=== PATIENT | male | born 1930 | race Hispanic/Latino ===

== ENCOUNTER 2017-12-11 15:08 | Inpatient (IN) | payer MEDICARE, OTHER ==
[2017-12-11] MEDS ORDERED: NACL 0.9% 500 ML 500 ML IV ONE (16:00)
--- NOTE | 2017-12-11 16:29 | Emergency Department Report ---
ED Shortness of Breath HPI - General Chief Complaint: Dyspnea/Respdistress Stated Complaint: POSS. PNEUMONIA Time Seen by Provider: 12/11/17 16:09 Source: patient, family, EMS Mode of arrival: Stretcher Limitations: Physical Limitation - History of Present Illness MD Complaint: shortness of breath -: Gradual, days(s) (5 days) Associated Symptoms: other (intermittent right side chest pain, low energy, loss of appetite, and mild cough. He was recently here as inpatient for pneumonia and discharged November 27 to a Rehab/ NH. He usually lives at home with his and in good health but a few months ago was diagnosed with MM and in September he fractured his arm for the second time.) Treatments Prior to Arrival: none - Related Data Allergies Allergy/AdvReac Type Severity Reaction Status Date / Time No Known Allergies Allergy Unverified 12/11/17 16:00 ED Review of Systems ROS: Stated complaint: POSS. PNEUMONIA Other details as noted in HPI Constitutional: denies: chills, fever Eyes: denies: eye pain, eye discharge, vision change ENT: denies: ear pain, throat pain Respiratory: see HPI, cough, shortness of breath. denies: wheezing Cardiovascular: as per HPI, chest pain. denies: palpitations Endocrine: no symptoms reported Gastrointestinal: denies: abdominal pain, nausea, diarrhea Genitourinary: denies: urgency, dysuria Musculoskeletal: denies: back pain, joint swelling, arthralgia Skin: denies: rash, lesions Neurological: denies: headache, weakness, paresthesias Psychiatric: denies: anxiety, depression Hematological/Lymphatic: easy bruising. denies: easy bleeding ED Past Medical Hx - Past Medical History Previous Medical History?: Yes Hx Hypertension: Yes Hx CVA: Yes Hx Renal Disease: Yes Additional medical history: multiple myeloma - Surgical History Additional Surgical History: Pacemaker - Social History Smoking Status: Former Smoker Substance Use Type: None ED Physical Exam - General Limitations: Physical Limitation General appearance: in no apparent distress, lethargic - Head Head exam: Present: atraumatic, normocephalic - Eye Eye exam: Present: normal appearance - ENT ENT exam: Present: mucous membranes moist - Neck Neck exam: Present: normal inspection - Respiratory Respiratory exam: Present: rales (right side), decreased breath sounds. Absent : respiratory distress, chest wall tenderness, accessory muscle use - Cardiovascular Cardiovascular Exam: Present: normal rhythm, tachycardia. Absent: systolic murmur, diastolic murmur, rubs, gallop - GI/Abdominal GI/Abdominal exam: Present: soft, normal bowel sounds - Rectal Rectal exam: Present: deferred - Extremities Exam Extremities exam: Present: pedal edema (2+ edema) - Back Exam Back exam: Present: normal inspection - Neurological Exam Neurological exam: Present: alert, oriented X3 - Psychiatric Psychiatric exam: Present: normal affect, normal mood - Skin Skin exam: Present: warm, dry, normal color, ecchymosis. Absent: rash ED Course Vital Signs 12/11/17 12/11/17 15:56 16:29 Temperature 100.0 F H Pulse Rate 104 H Respiratory 22 Rate Blood Pressure 119/80 O2 Sat by Pulse 98 98 Oximetry ED Medical Decision Making - Lab Data Result diagrams: 12/11/17 16:30 12/11/17 16:30 Critical care attestation.: If time is entered above; I have spent that time in minutes in the direct care of this critically ill patient, excluding procedure time. ED Disposition Clinical Impression: CHF exacerbation Qualifiers: Congestive heart failure type: unspecified Qualified Code(s): I50.9 - Heart failure, unspecified Disposition: DC-09 OP ADMIT IP TO THIS HOSP Is pt being admited?: Yes Does the pt Need Aspirin: No Condition: Stable
[2017-12-11 16:35] LABS: Bacteria,Urine 1+ /HPF (Negative); Bilirubin,Urine NEG (Negative); Blood,Urine MOD (Negative); Color,Urine Yellow (Yellow); Nitrite,Urine NEG (Negative); Protein,Urine <15 mg/dL mg/dL (Negative); Urobilinogen,Urine < 2.0 mg/dL (<2.0)
[2017-12-11 16:52] LABS: Hemoglobin 9.8 gm/dl (11.8-15.2); Mean Corpuscular HGB Conc 33 % (32-34); Mean Corpuscular Hemoglobin 32 pg (28-32); Mean Corpuscular Volume 99 fl (84-94); Red Blood Count 3.02 M/mm3 (3.65-5.03); Red Cell Distribution Width 13.6 % (13.2-15.2)
[2017-12-11 17:15] LABS: Albumin 3.2 g/dL (3.9-5); Calcium 8.5 mg/dL (8.4-10.2)
[2017-12-11 17:25] LABS: Basophils % (Manual) 0 % (0.0-1.8); Eosinophils % (Manual) 0 % (0.0-4.3); Total Cells Counted 100
[2017-12-11 17:27] LABS: Platelet Estimate Appears Decreased
[2017-12-11 17:28] LABS: Anisocytosis 1+; Ovalocytes Few; Poikilocytosis Few; Tear Drop Cells Few
[2017-12-11 17:29] LABS: Platelet Count 91 K/mm3 (140-440)
--- NOTE | 2017-12-11 17:35 | XRay Report ---
FINAL REPORT PROCEDURE: XR CHEST 1V AP TECHNIQUE: Chest radiograph anteroposterior view. CPT 43074 HISTORY: possible Sepsis COMPARISON: No prior studies are available for comparison. FINDINGS: Heart: Prominent cardiac silhouette Mediastinum/Vessels: Prominent central vessels. Lungs/Pleural space: There are bilateral pulmonary opacities and pleural effusions. No pneumothorax. Bony thorax: No acute osseous abnormality. Life support devices: Dual lead left-sided pacemaker. IMPRESSION: Findings may be related to congestive heart failure with pulmonary edema. Correlate for possible infectious infiltrates..
[2017-12-11 17:59] LABS: INR 1.15 (0.87-1.13)
[2017-12-11] MEDS ORDERED: LASIX IV ONE (18:20)
--- NOTE | 2017-12-11 21:03 | History and Physical Report ---
History of Present Illness Date of examination: 12/11/17 Date of admission: 12/11/17 19:45 Chief complaint: CC Increasing SOB for 1 week History of present illness: History of Present Illness: 87 y/o male with pmh of HTN recent admission for pnemonia, CKD ,CVA and Multiple myeloma -resident of [facility] for rehab comes in for prgressive increase in his SOB.Sob on minimal exertion and lying flat.Class IV NYHA symptoms.Also swelling of legs for 2 weeks.No recent travel. No fever or chills.No dysuria.Also rt side intermittent chest pain loss of appetite and mild cough.He was recently treae fo rpneumonia in Oct and discharged on 11/27.hose records are not available on [facility] for some reason. Past Medical History Previous Medical History?: Yes Hx Hypertension: Yes Hx CVA: Yes Hx Renal Disease: Yes Additional medical history: multiple myeloma Surgical History Additional Surgical History: Pacemaker Social History Smoking Status: Former Smoker Substance Use Type: None Lives at [facility] Fam Hx Htn Review of Systems Stated complaint: POSS. PNEUMONIA Other details as noted in HPI Constitutional: denies: chills, fever Eyes: denies: eye pain, eye discharge, vision change ENT: denies: ear pain, throat pain Respiratory: see HPI, cough, shortness of breath. denies: wheezing Cardiovascular: as per HPI, chest pain. denies: palpitations Endocrine: no symptoms reported Gastrointestinal: denies: abdominal pain, nausea, diarrhea Genitourinary: denies: urgency, dysuria Musculoskeletal: denies: back pain, joint swelling, arthralgia Skin: denies: rash, lesions Neurological: denies: headache, weakness, paresthesias Psychiatric: denies: anxiety, depression Hematological/Lymphatic: easy bruising. denies: easy bleeding Medications and Allergies Allergies Allergy/AdvReac Type Severity Reaction Status Date / Time No Known Allergies Allergy Unverified 12/11/17 16:00 Home Medications Medication Instructions Recorded Confirmed Last Taken Type Aspirin EC [Aspirin Enteric Coated 81 mg PO QDAY 12/11/17 12/11/17 Unknown History TAB] Bisacodyl 10 mg RC QDAY PRN 12/11/17 12/11/17 Unknown History Ti/D3/Mag11/Zinc/Shingle Packer/Venu/Bor 1 tab PO QDAY 12/11/17 12/11/17 Unknown History [Caltrate 600+D Plus Tablet] Cholecalciferol (Vitamin D3) 2,000 unit PO QDAY 12/11/17 12/11/17 Unknown History [Vitamin D3 2,000 unit] Dexamethasone 4 mg PO QWEEK 12/11/17 12/11/17 Unknown History Docusate Sodium [Colace] 100 mg PO BID 12/11/17 12/11/17 Unknown History Enoxaparin [Lovenox] 80 mg SQ QDAY 12/11/17 12/11/17 Unknown History Levofloxacin [Levaquin TAB] 500 mg PO QDAY 12/11/17 12/11/17 Unknown History [place]-3 Fatty Acids/Fish Oil [Fish 1 each PO QDAY 12/11/17 12/11/17 Unknown History Oil] Polyethylene Glycol 3350 [Miralax 17 gm PO QDAY 12/11/17 12/11/17 Unknown History 3350] Sennosides [Senna] 8.6 mg PO QHS 12/11/17 12/11/17 Unknown History carBAMazepine [Carbamazepine] 200 mg PO Q12HR 12/11/17 12/11/17 Unknown History guaiFENesin/DEXTROMETHORPHAN 1 each PO Q12H 12/11/17 12/11/17 Unknown History [Mucinex DM ER 600-30 mg TAB] oxyCODONE /ACETAMINOPHEN [Percocet 1 tab PO Q6HR PRN 12/11/17 12/11/17 Unknown History 5/325] Exam - Constitutional Vitals: Temp Pulse Resp BP Pulse Ox 99 F 104 H 16 119/80 100 12/11/17 19:40 12/11/17 19:40 12/11/17 19:40 12/11/17 19:40 12/11/17 19:40 General appearance: Present: mild distress, well-nourished - EENT Eyes: Present: PERRL ENT: hearing intact, clear oral mucosa - Neck Neck: Present: supple, normal ROM - Respiratory Respiratory effort: normal Respiratory: bilateral: CTA, rales - Cardiovascular Heart rate: 98 Rhythm: regular Heart Sounds: Present: S1 & S2. Absent: rub, click - Extremities Extremities: no ischemia, pulses intact, pulses symmetrical, abnormal (4 plus edema) Extremity abnormal: edema (4 plus) Peripheral Pulses: within normal limits - Abdominal General gastrointestinal: Present: soft, non-tender, non-distended, normal bowel sounds Male genitourinary: Present: normal - Rectal Rectal Exam: deferred - Integumentary Integumentary: Present: clear, warm, dry, decreased turgor - Musculoskeletal Musculoskeletal: gait normal, strength equal bilaterally - Psychiatric Psychiatric: appropriate mood/affect, intact judgment & insight - Neurologic Neurologic: CNII-XII intact, moves all extremities - Allied Health Allied health notes reviewed: nursing, case management Results - Labs CBC & Chem 7: 12/11/17 16:30 12/11/17 16:30 Labs: Laboratory Last Values WBC 8.2 K/mm3 (4.5-11.0) 12/11/17 16:30 RBC 3.02 M/mm3 (3.65-5.03) L 12/11/17 16:30 Hgb 9.8 gm/dl (11.8-15.2) L 12/11/17 16:30 Hct 30.0 % (35.5-45.6) L 12/11/17 16:30 MCV 99 fl (84-94) H 12/11/17 16:30 MCH 32 pg (28-32) 12/11/17 16:30 MCHC 33 % (32-34) 12/11/17 16:30 RDW 13.6 % (13.2-15.2) 12/11/17 16:30 Plt Count 91 K/mm3 (140-440) L 12/11/17 16:30 Add Manual Diff Complete 12/11/17 16:30 Total Counted 100 12/11/17 16:30 Seg Neutrophils % Hop Grower 12/11/17 16:30 Seg Neuts % (Manual) 96.0 % (40.0-70.0) H 12/11/17 16:30 Band Neutrophils % 0 % 12/11/17 16:30 Lymphocytes % (Manual) 3.0 % (13.4-35.0) L 12/11/17 16:30 Reactive Lymphs % (Man) 0 % 12/11/17 16:30 Monocytes % (Manual) 1.0 % (0.0-7.3) 12/11/17 16:30 Eosinophils % (Manual) 0 % (0.0-4.3) 12/11/17 16:30 Basophils % (Manual) 0 % (0.0-1.8) 12/11/17 16:30 Metamyelocytes % 0 % 12/11/17 16:30 Myelocytes % 0 % 12/11/17 16:30 Promyelocytes % 0 % 12/11/17 16:30 Blast Cells % 0 % 12/11/17 16:30 Nucleated RBC % Not Reportable 12/11/17 16:30 Seg Neutrophils # Man 7.9 K/mm3 (1.8-7.7) H 12/11/17 16:30 Band Neutrophils # 0.0 K/mm3 12/11/17 16:30 Lymphocytes # (Manual) 0.2 K/mm3 (1.2-5.4) L 12/11/17 16:30 Abs React Lymphs (Man) 0.0 K/mm3 12/11/17 16:30 Monocytes # (Manual) 0.1 K/mm3 (0.0-0.8) 12/11/17 16:30 Eosinophils # (Manual) 0.0 K/mm3 (0.0-0.4) 12/11/17 16:30 Basophils # (Manual) 0.0 K/mm3 (0.0-0.1) 12/11/17 16:30 Metamyelocytes # 0.0 K/mm3 12/11/17 16:30 Myelocytes # 0.0 K/mm3 12/11/17 16:30 Promyelocytes # 0.0 K/mm3 12/11/17 16:30 Blast Cells # 0.0 K/mm3 12/11/17 16:30 WBC Morphology Not Reportable 12/11/17 16:30 Hypersegmented Neuts Not Reportable 12/11/17 16:30 Hyposegmented Neuts Not Reportable 12/11/17 16:30 Hypogranular Neuts Not Reportable 12/11/17 16:30 Smudge Cells Not Reportable 12/11/17 16:30 Toxic Granulation Not Reportable 12/11/17 16:30 Toxic Vacuolation Not Reportable 12/11/17 16:30 Dohle Bodies Not Reportable 12/11/17 16:30 Pelger-Huet Anomaly Not Reportable 12/11/17 16:30 Herve Rods Not Reportable 12/11/17 16:30 Platelet Estimate Appears decreased 12/11/17 16:30 Clumped Platelets Not Reportable 12/11/17 16:30 Plt Clumps, EDTA Not Reportable 12/11/17 16:30 Large Platelets Not Reportable 12/11/17 16:30 Giant Platelets Not Reportable 12/11/17 16:30 Platelet Satelliting Not Reportable 12/11/17 16:30 Plt Morphology Comment Not Reportable 12/11/17 16:30 RBC Morphology Not Reportable 12/11/17 16:30 Dimorphic RBCs Not Reportable 12/11/17 16:30 Polychromasia Not Reportable 12/11/17 16:30 Hypochromasia Not Reportable 12/11/17 16:30 Poikilocytosis Few 12/11/17 16:30 Anisocytosis 1+ 12/11/17 16:30 Microcytosis Not Reportable 12/11/17 16:30 Macrocytosis Not Reportable 12/11/17 16:30 Spherocytes Not Reportable 12/11/17 16:30 Pappenheimer Bodies Not Reportable 12/11/17 16:30 Sickle Cells Not Reportable 12/11/17 16:30 Target Cells Not Reportable 12/11/17 16:30 Tear Drop Cells Few 12/11/17 16:30 Ovalocytes Few 12/11/17 16:30 Helmet Cells Not Reportable 12/11/17 16:30 [place] Bodies Not Reportable 12/11/17 16:30 [place] Rings Not Reportable 12/11/17 16:30 Rudi Cells Not Reportable 12/11/17 16:30 Bite Cells Not Reportable 12/11/17 16:30 Crenated Cell Not Reportable 12/11/17 16:30 Elliptocytes Not Reportable 12/11/17 16:30 Acanthocytes (Spur) Not Reportable 12/11/17 16:30 Rouleaux Not Reportable 12/11/17 16:30 Hemoglobin C Crystals Not Reportable 12/11/17 16:30 Schistocytes Not Reportable 12/11/17 16:30 Malaria parasites Not Reportable 12/11/17 16:30 Yuval Bodies Not Reportable 12/11/17 16:30 Hem Pathologist Commnt No 12/11/17 16:30 PT 15.3 Sec. (12.2-14.9) H 12/11/17 17:40 INR 1.15 (0.87-1.13) H 12/11/17 17:40 Sodium 138 mmol/L (137-145) 12/11/17 16:30 Potassium 4.3 mmol/L (3.6-5.0) 12/11/17 16:30 Chloride 97.7 mmol/L (98-107) L 12/11/17 16:30 Carbon Dioxide 23 mmol/L (22-30) 12/11/17 16:30 Anion Gap 22 mmol/L 12/11/17 16:30 BUN 35 mg/dL (9-20) H 12/11/17 16:30 Creatinine 3.4 mg/dL (0.8-1.5) H 12/11/17 16:30 Estimated GFR 17 ml/min 12/11/17 16:30 BUN/Creatinine Ratio 10 % 12/11/17 16:30 Glucose 101 mg/dL (75-100) H 12/11/17 16:30 Lactic Acid 1.50 mmol/L (0.7-2.0) 12/11/17 18:00 Calcium 8.5 mg/dL (8.4-10.2) 12/11/17 16:30 Total Bilirubin 0.20 mg/dL (0.1-1.2) 12/11/17 16:30 AST 19 units/L (5-40) 12/11/17 16:30 ALT 7 units/L (7-56) 12/11/17 16:30 Alkaline Phosphatase 80 units/L (35-129) 12/11/17 16:30 NT-Pro-B Natriuret Pep > 56553 pg/mL (0-900) H 12/11/17 16:30 Total Protein 5.8 g/dL (6.3-8.2) L 12/11/17 16:30 Albumin 3.2 g/dL (3.9-5) L 12/11/17 16:30 Albumin/Globulin Ratio 1.2 % 12/11/17 16:30 Urine Color Yellow (Yellow) 12/11/17 16:00 Urine Turbidity Clear (Clear) 12/11/17 16:00 Urine pH 5.0 (5.0-7.0) 12/11/17 16:00 Ur Specific Century 1.010 (1.003-1.030) 12/11/17 16:00 Urine Protein <15 mg/dl mg/dL (Negative) 12/11/17 16:00 Urine Glucose (UA) Neg mg/dL (Negative) 12/11/17 16:00 Urine Ketones Neg mg/dL (Negative) 12/11/17 16:00 Urine Blood Mod (Negative) 12/11/17 16:00 Urine Nitrite Neg (Negative) 12/11/17 16:00 Urine Bilirubin Neg (Negative) 12/11/17 16:00 Urine Urobilinogen < 2.0 mg/dL (<2.0) 12/11/17 16:00 Ur Leukocyte Esterase Neg (Negative) 12/11/17 16:00 Urine WBC (Auto) 2.0 /HPF (0.0-6.0) 12/11/17 16:00 Urine RBC (Auto) 2.0 /HPF (0.0-6.0) 12/11/17 16:00 U Epithel Cells (Auto) < 1.0 /HPF (0-13.0) 12/11/17 16:00 Urine Bacteria (Auto) 1+ /HPF (Negative) 12/11/17 16:00 Short CBC 12/11/17 Range/Units 16:30 WBC 8.2 (4.5-11.0) K/mm3 Hgb 9.8 L (11.8-15.2) gm/dl Hct 30.0 L (35.5-45.6) % Plt Count 91 L (140-440) K/mm3 BMP 12/11/17 16:30 Sodium 138 Potassium 4.3 Chloride 97.7 L Carbon Dioxide 23 BUN 35 H Creatinine 3.4 H Glucose 101 H Calcium 8.5 Liver Function 12/11/17 Range/Units 16:30 Total Bilirubin 0.20 (0.1-1.2) mg/dL AST 19 (5-40) units/L ALT 7 (7-56) units/L Alkaline Phosphatase 80 (35-129) units/L Albumin 3.2 L (3.9-5) g/dL Urine 12/11/17 Range/Units 16:00 Urine Color Yellow (Yellow) Urine pH 5.0 (5.0-7.0) Ur Specific Century 1.010 (1.003-1.030) Urine Protein <15 mg/dl (Negative) mg/dL Urine Glucose (UA) Neg (Negative) mg/dL - Imaging and Cardiology EKG: report reviewed (Sinus tach 99/min VPC's present) Chest x-ray: report reviewed (CHF with pulmonary edema) Assessment and Plan Advance Directives: Yes (Full code) VTE prophylaxis?: Chemical Plan of care discussed with patient/family: Yes - Patient Problems (1) Acute exacerbation of congestive heart failure Current Visit: Yes Status: Acute Qualifiers: Congestive heart failure type: diastolic Qualified Code(s): I50.33 - Acute on chronic diastolic (congestive) heart failure Plan to address problem: Clinical picture in favor of CHF. Pneumonia unlikely. BNP more than 14321 IV Lasix q12 and Kcl q12 CHeck ECHO Cardiology consult requested (2) CKD (chronic kidney disease) Current Visit: Yes Status: Acute Qualifiers: Chronic kidney disease stage: stage 4 (severe) Qualified Code(s): N18.4 - Chronic kidney disease, stage 4 (severe) Plan to address problem: Previous labs from Oct 2017 not availabe. Renal consult requested (3) Multiple myeloma in remission Current Visit: Yes Status: Chronic Plan to address problem: On Decadron 4 mg q weekly (4) HTN (hypertension) Current Visit: Yes Status: Chronic Qualifiers: Hypertension type: essential hypertension Qualified Code(s): I10 - Essential (primary) hypertension Plan to address problem: Coreg and Losartan added (5) Vitamin D deficiency Current Visit: Yes Status: Chronic Plan to address problem: On Vit d supplement (6) Anemia Current Visit: Yes Status: Chronic Qualifiers: Anemia type: unspecified type Qualified Code(s): D64.9 - Anemia, unspecified Plan to address problem: Sec to Multiple Myeloma and nutritional Check Iron level and B12 levels (7) Thrombocytopenia Current Visit: Yes Status: Acute Plan to address problem: Possibly sec to Multiple Myeloma Hem onc consulted (8) Malnutrition Current Visit: Yes Status: Chronic Qualifiers: Protein-calorie malnutrition severity: moderate Plan to address problem: Dietary consult reequested (9) DVT prophylaxis Current Visit: Yes Status: Acute Plan to address problem: On Lovenox
[2017-12-11] MEDS ORDERED: MILK OF MAGNESIA PO PRN (21:10)
[2017-12-11] MEDS ORDERED: DULCOLAX PR PRN (21:10)
[2017-12-11] MEDS ORDERED: TYLENOL PO PRN (21:10)
[2017-12-11] MEDS ORDERED: ZOFRAN IV PRN (21:10)
[2017-12-11] MEDS ORDERED: BABY ASPIRIN ONE (21:41)
[2017-12-11] MEDS: COLACE PO SCH (21:46)
[2017-12-11] MEDS: K-DUR PO SCH (21:46)
[2017-12-11] MEDS: HALFPRIN EC PO SCH (21:46)
[2017-12-11] MEDS: AMBIEN PO PRN (21:47)
[2017-12-11] MEDS: LOVENOX SUB-Q SCH (22:50)
[2017-12-12] MEDS: LASIX IV SCH ×2 (06:19→17:41)
[2017-12-12] MEDS: COREG PO SCH ×3 (06:20→22:02)
[2017-12-12 08:02] LABS: % Iron Saturation 13.66 %
--- NOTE | 2017-12-12 09:13 | Progress Note ---
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 avoid nephrotoxins, culture manager consulted on lasix, dc HUAN for now (creat now 3.5, was 2.3 on previous admission) MM outpatient fup with his oncologist anemia and thrombocytopenia are mild and stable Sp PM HR stable HTN BP meds, propranolol and doxazosin were dc during last admission due to hypotension Complete immobility due to frailty PT, home with services vs SNF, fup PT assessment moderate malnutrition continue diet, accounts collector consult hx of CVA stable History Interval history: Review of systems Constitutional: No fevers, no malaise, no joint pains CVS: No chest pain, complaining of orthopnea and pedal edema GI: No abdominal pain, no diarrhea, no vomiting, no constipation Respiratory: no wheezing, admits to dry cough Hospitalist Physical - Physical exam Narrative exam: General.: Appears well, no distress, nontoxic HEENT: Moist mucous membranes, extraocular muscles intact, no lymphadenopathy Right cirrhosis, which is chronic Neck: supple Cardiac: S1-S2 heard Lungs: Bibasilar crackles Abdomen: soft , nontender, nondistended, bowel sounds positive Extremities: 2+ bipedal edema Skin: no rash or lesions Neurologic: no gross focal deficits, generalized weakness Psych: appropriate behavior, appropriate mood, corporative, judgment intact - Constitutional Vitals: Temp Pulse Resp BP Pulse Ox 98.8 F 95 H 17 107/67 97 12/12/17 06:05 12/12/17 08:17 12/12/17 06:05 12/12/17 06:20 12/12/17 08:17 General appearance: Present: mild distress, well-nourished Results - Labs CBC & Chem 7: 12/11/17 16:30 12/12/17 09:20 Labs: Laboratory Last Values WBC 8.2 K/mm3 (4.5-11.0) 12/11/17 16:30 RBC 3.02 M/mm3 (3.65-5.03) L 12/11/17 16:30 Hgb 9.8 gm/dl (11.8-15.2) L 12/11/17 16:30 Hct 30.0 % (35.5-45.6) L 12/11/17 16:30 MCV 99 fl (84-94) H 12/11/17 16:30 MCH 32 pg (28-32) 12/11/17 16:30 MCHC 33 % (32-34) 12/11/17 16:30 RDW 13.6 % (13.2-15.2) 12/11/17 16:30 Plt Count 91 K/mm3 (140-440) L 12/11/17 16:30 Add Manual Diff Complete 12/11/17 16:30 Total Counted 100 12/11/17 16:30 Seg Neutrophils % [employer] Supply [employer] Vice President 12/11/17 16:30 Seg Neuts % (Manual) 96.0 % (40.0-70.0) H 12/11/17 16:30 Band Neutrophils % 0 % 12/11/17 16:30 Lymphocytes % (Manual) 3.0 % (13.4-35.0) L 12/11/17 16:30 Reactive Lymphs % (Man) 0 % 12/11/17 16:30 Monocytes % (Manual) 1.0 % (0.0-7.3) 12/11/17 16:30 Eosinophils % (Manual) 0 % (0.0-4.3) 12/11/17 16:30 Basophils % (Manual) 0 % (0.0-1.8) 12/11/17 16:30 Metamyelocytes % 0 % 12/11/17 16:30 Myelocytes % 0 % 12/11/17 16:30 Promyelocytes % 0 % 12/11/17 16:30 Blast Cells % 0 % 12/11/17 16:30 Nucleated RBC % Not Reportable 12/11/17 16:30 Seg Neutrophils # Man 7.9 K/mm3 (1.8-7.7) H 12/11/17 16:30 Band Neutrophils # 0.0 K/mm3 12/11/17 16:30 Lymphocytes # (Manual) 0.2 K/mm3 (1.2-5.4) L 12/11/17 16:30 Abs React Lymphs (Man) 0.0 K/mm3 12/11/17 16:30 Monocytes # (Manual) 0.1 K/mm3 (0.0-0.8) 12/11/17 16:30 Eosinophils # (Manual) 0.0 K/mm3 (0.0-0.4) 12/11/17 16:30 Basophils # (Manual) 0.0 K/mm3 (0.0-0.1) 12/11/17 16:30 Metamyelocytes # 0.0 K/mm3 12/11/17 16:30 Myelocytes # 0.0 K/mm3 12/11/17 16:30 Promyelocytes # 0.0 K/mm3 12/11/17 16:30 Blast Cells # 0.0 K/mm3 12/11/17 16:30 WBC Morphology Not Reportable 12/11/17 16:30 Hypersegmented Neuts Not Reportable 12/11/17 16:30 Hyposegmented Neuts Not Reportable 12/11/17 16:30 Hypogranular Neuts Not Reportable 12/11/17 16:30 Smudge Cells Not Reportable 12/11/17 16:30 Toxic Granulation Not Reportable 12/11/17 16:30 Toxic Vacuolation Not Reportable 12/11/17 16:30 Dohle Bodies Not Reportable 12/11/17 16:30 Pelger-Huet Anomaly Not Reportable 12/11/17 16:30 Herve Rods Not Reportable 12/11/17 16:30 Platelet Estimate Appears decreased 12/11/17 16:30 Clumped Platelets Not Reportable 12/11/17 16:30 Plt Clumps, EDTA Not Reportable 12/11/17 16:30 Large Platelets Not Reportable 12/11/17 16:30 Giant Platelets Not Reportable 12/11/17 16:30 Platelet Satelliting Not Reportable 12/11/17 16:30 Plt Morphology Comment Not Reportable 12/11/17 16:30 RBC Morphology Not Reportable 12/11/17 16:30 Dimorphic RBCs Not Reportable 12/11/17 16:30 Polychromasia Not Reportable 12/11/17 16:30 Hypochromasia Not Reportable 12/11/17 16:30 Poikilocytosis Few 12/11/17 16:30 Anisocytosis 1+ 12/11/17 16:30 Microcytosis Not Reportable 12/11/17 16:30 Macrocytosis Not Reportable 12/11/17 16:30 Spherocytes Not Reportable 12/11/17 16:30 Pappenheimer Bodies Not Reportable 12/11/17 16:30 Sickle Cells Not Reportable 12/11/17 16:30 Target Cells Not Reportable 12/11/17 16:30 Tear Drop Cells Few 12/11/17 16:30 Ovalocytes Few 12/11/17 16:30 Helmet Cells Not Reportable 12/11/17 16:30 Luciano-Agenda Bodies Not Reportable 12/11/17 16:30 [place] Rings Not Reportable 12/11/17 16:30 Repton Cells Not Reportable 12/11/17 16:30 Bite Cells Not Reportable 12/11/17 16:30 Crenated Cell Not Reportable 12/11/17 16:30 Elliptocytes Not Reportable 12/11/17 16:30 Acanthocytes (Spur) Not Reportable 12/11/17 16:30 Rouleaux Not Reportable 12/11/17 16:30 Hemoglobin C Crystals Not Reportable 12/11/17 16:30 Schistocytes Not Reportable 12/11/17 16:30 Malaria parasites Not Reportable 12/11/17 16:30 Yuval Bodies Not Reportable 12/11/17 16:30 Hem Pathologist Commnt No 12/11/17 16:30 PT 15.3 Sec. (12.2-14.9) H 12/11/17 17:40 INR 1.15 (0.87-1.13) H 12/11/17 17:40 Sodium 138 mmol/L (137-145) 12/11/17 16:30 Potassium 4.3 mmol/L (3.6-5.0) 12/11/17 16:30 Chloride 97.7 mmol/L (98-107) L 12/11/17 16:30 Carbon Dioxide 23 mmol/L (22-30) 12/11/17 16:30 Anion Gap 22 mmol/L 12/11/17 16:30 BUN 35 mg/dL (9-20) H 12/11/17 16:30 Creatinine 3.4 mg/dL (0.8-1.5) H 12/11/17 16:30 Estimated GFR 17 ml/min 12/11/17 16:30 BUN/Creatinine Ratio 10 % 12/11/17 16:30 Glucose 101 mg/dL (75-100) H 12/11/17 16:30 Lactic Acid 1.50 mmol/L (0.7-2.0) 12/11/17 18:00 Calcium 8.5 mg/dL (8.4-10.2) 12/11/17 16:30 Iron 22 ug/dL (49-181) L 12/12/17 06:15 TIBC 161 mcg/dL (250-450) L 12/12/17 06:15 % Saturation 13.66 % 12/12/17 06:15 Transferrin 131 mg/dl (180-329) L 12/12/17 06:15 Total Bilirubin 0.20 mg/dL (0.1-1.2) 12/11/17 16:30 AST 19 units/L (5-40) 12/11/17 16:30 ALT 7 units/L (7-56) 12/11/17 16:30 Alkaline Phosphatase 80 units/L (35-129) 12/11/17 16:30 NT-Pro-B Natriuret Pep > 08914 pg/mL (0-900) H 12/11/17 16:30 Total Protein 5.8 g/dL (6.3-8.2) L 12/11/17 16:30 Albumin 3.2 g/dL (3.9-5) L 12/11/17 16:30 Albumin/Globulin Ratio 1.2 % 12/11/17 16:30 Vitamin B12 1670 pg/mL (211-911) H 12/12/17 06:15 Urine Color Yellow (Yellow) 12/11/17 16:00 Urine Turbidity Clear (Clear) 12/11/17 16:00 Urine pH 5.0 (5.0-7.0) 12/11/17 16:00 Ur Specific [place] 1.010 (1.003-1.030) 12/11/17 16:00 Urine Protein <15 mg/dl mg/dL (Negative) 12/11/17 16:00 Urine Glucose (UA) Neg mg/dL (Negative) 12/11/17 16:00 Urine Ketones Neg mg/dL (Negative) 12/11/17 16:00 Urine Blood Mod (Negative) 12/11/17 16:00 Urine Nitrite Neg (Negative) 12/11/17 16:00 Urine Bilirubin Neg (Negative) 12/11/17 16:00 Urine Urobilinogen < 2.0 mg/dL (<2.0) 12/11/17 16:00 Ur Leukocyte Esterase Neg (Negative) 12/11/17 16:00 Urine WBC (Auto) 2.0 /HPF (0.0-6.0) 12/11/17 16:00 Urine RBC (Auto) 2.0 /HPF (0.0-6.0) 12/11/17 16:00 U Epithel Cells (Auto) < 1.0 /HPF (0-13.0) 12/11/17 16:00 Urine Bacteria (Auto) 1+ /HPF (Negative) 12/11/17 16:00
[2017-12-12] MEDS ORDERED: COZAAR PO SCH (10:00)
[2017-12-12] MEDS ORDERED: NON-FORMULARY (Cholecalciferol (Vitamin D3) [Vitamin D3 2,000 Unit] 2,000 UNIT) PO SCH (10:00)
[2017-12-12 10:02] LABS: Calcium 8.4 mg/dL (8.4-10.2)
--- NOTE | 2017-12-12 10:16 | Consultation ---
History of Present Illness Consult date: 12/12/17 Consult reason: congestive heart failure History of present illness: 87 YO man with h/o sick sinus syndrome s/p PPM, multiple myeloma, chronic systolic heart failure, and CKD who presented to hospital with worsening shortness of breath and orthopnea. His BNP is markedly elevated and chest Xray is suggestive of pulmonary edema. Overall clinical picture is consistent with CHF exacerbation. ECG reveals NSR wtih single PVC, possible prior anterior HI Last echocardiogram 11/02/16 revealed EF of 40-45% Past History Past Medical History: heart failure, hypertension, other (multiple myeloma, sick sinus syndrome) Past Surgical History: Other (PPM implant) Social history: . denies: smoking Medications and Allergies Allergies Allergy/AdvReac Type Severity Reaction Status Date / Time No Known Allergies Allergy Unverified 12/11/17 16:00 Home Medications Medication Instructions Recorded Confirmed Last Taken Type Aspirin EC [Aspirin Enteric Coated 81 mg PO QDAY 12/11/17 12/11/17 Unknown History TAB] Bisacodyl 10 mg RC QDAY PRN 12/11/17 12/11/17 Unknown History Ti/D3/Mag11/Zinc/Shipper/Venu/Bor 1 tab PO QDAY 12/11/17 12/11/17 Unknown History [Caltrate 600+D Plus Tablet] Cholecalciferol (Vitamin D3) 2,000 unit PO QDAY 12/11/17 12/11/17 Unknown History [Vitamin D3 2,000 unit] Dexamethasone 4 mg PO QWEEK 12/11/17 12/11/17 Unknown History Docusate Sodium [Colace] 100 mg PO BID 12/11/17 12/11/17 Unknown History Enoxaparin [Lovenox] 80 mg SQ QDAY 12/11/17 12/11/17 Unknown History Levofloxacin [Levaquin TAB] 500 mg PO QDAY 12/11/17 12/11/17 Unknown History [place]-3 Fatty Acids/Fish Oil [Fish 1 each PO QDAY 12/11/17 12/11/17 Unknown History Oil] Polyethylene Glycol 3350 [Miralax 17 gm PO QDAY 12/11/17 12/11/17 Unknown History 3350] Sennosides [Senna] 8.6 mg PO QHS 12/11/17 12/11/17 Unknown History carBAMazepine [Carbamazepine] 200 mg PO Q12HR 12/11/17 12/11/17 Unknown History guaiFENesin/DEXTROMETHORPHAN 1 each PO Q12H 12/11/17 12/11/17 Unknown History [Mucinex DM ER 600-30 mg TAB] oxyCODONE /ACETAMINOPHEN [Percocet 1 tab PO Q6HR PRN 12/11/17 12/11/17 Unknown History 5/325] Active Meds: Active Medications Acetaminophen (Tylenol) 650 mg PO Q4H PRN PRN Reason: Pain MILD(1-3)/Fever >100.5/OLEA Aspirin (Halfprin Ec) 81 mg PO QDAY [facility] Last Admin: 12/11/17 21:46 Dose: 81 mg Bisacodyl (Dulcolax) 10 mg [place] QDAY PRN PRN Reason: Constipation unrelieved by MOM Carbamazepine (Tegretol) 200 mg PO Q12HR [facility] Last Admin: 12/11/17 21:47 Dose: 200 mg Carvedilol (Coreg) 3.125 mg PO BID [facility] Last Admin: 12/12/17 06:20 Dose: Not Given Cholecalciferol (Vitamin D3) 2,000 unit PO QDAY [facility] Dexamethasone (Decadron) 4 mg PO QWEEK [facility] Docusate Sodium (Colace) 100 mg PO BID [facility] Last Admin: 12/11/17 21:46 Dose: 100 mg Enoxaparin Sodium (Lovenox) 80 mg SUB-Q QDAY [facility] Last Admin: 12/11/17 22:50 Dose: 80 mg Furosemide (Lasix) 40 mg IV 0600,1800 [facility] Last Admin: 12/12/17 06:19 Dose: 40 mg Magnesium Hydroxide (Milk Of Magnesia) 30 ml PO Q4H PRN PRN Reason: Constipation Ondansetron HCl (Zofran) 4 mg IV Q8H PRN PRN Reason: N/V unrelieved by Reglan Potassium Chloride (K-Dur) 20 meq PO Q12H [facility] Last Admin: 12/11/17 21:46 Dose: 20 meq Zolpidem Tartrate (Ambien) 5 mg PO QHS PRN PRN Reason: Sleep Last Admin: 12/11/17 21:47 Dose: 5 mg Physical Examination Vital Signs Temp Pulse Resp BP Pulse Ox 100.0 F H 104 H 22 119/80 98 12/11/17 15:56 12/11/17 15:56 12/11/17 15:56 12/11/17 15:56 12/11/17 15:56 General appearance: no acute distress Neck: Positive: neck supple, trachea midline Cardiac: Positive: Reg Rate and Rhythm. Negative: Audible Murmur Lungs: Positive: Decreased Breath Sounds Neuro: Positive: Grossly Intact Abdomen: Positive: Soft, Active Bowel Sounds Extremities: Present: +1 Edema Results 12/11/17 16:30 12/12/17 09:20 Cardiac Enzymes 12/11/17 Range/Units 16:30 AST 19 (5-40) units/L Coagulation 12/11/17 Range/Units 17:40 PT 15.3 H (12.2-14.9) Sec. INR 1.15 H (0.87-1.13) CBC 12/11/17 Range/Units 16:30 WBC 8.2 (4.5-11.0) K/mm3 RBC 3.02 L (3.65-5.03) M/mm3 Hgb 9.8 L (11.8-15.2) gm/dl Hct 30.0 L (35.5-45.6) % Plt Count 91 L (140-440) K/mm3 Comprehensive Metabolic Panel 12/11/17 12/12/17 Range/Units 16:30 09:20 Sodium 138 140 (137-145) mmol/L Potassium 4.3 4.9 (3.6-5.0) mmol/L Chloride 97.7 L 98.0 (98-107) mmol/L Carbon Dioxide 23 25 (22-30) mmol/L BUN 35 H 38 H (9-20) mg/dL Creatinine 3.4 H 3.4 H (0.8-1.5) mg/dL Glucose 101 H 108 H (75-100) mg/dL Calcium 8.5 8.4 (8.4-10.2) mg/dL AST 19 (5-40) units/L ALT 7 (7-56) units/L Alkaline Phosphatase 80 (35-129) units/L Total Protein 5.8 L (6.3-8.2) g/dL Albumin 3.2 L (3.9-5) g/dL Assessment and Plan Acute on chronic systolic heart failure Cardiomyopathy with EF 40-45% based on last echocardiogram 12/5/16 Multiple Myeloma SSS s/p PPM Recent pneumonia CKD Recommend IV diuresis while closely monitoring renal function and electrolytes. Repeat echocardiogram Consider nephrology consult.
[2017-12-12] MEDS: COLACE PO SCH ×2 (11:03→22:01)
[2017-12-12] MEDS: VITAMIN D3 PO SCH (11:04)
[2017-12-12] MEDS: HALFPRIN EC PO SCH (11:04)
[2017-12-12] MEDS: LOVENOX SUB-Q SCH (11:07)
[2017-12-12] MEDS: K-DUR PO SCH ×2 (13:15→22:02)
--- NOTE | 2017-12-12 15:00 | Consultation ---
History of Present Illness - Reason for Consult Consult date: 12/12/17 acute renal failure - History of Present Illness Mr. Armstrong is an 87yo with MM and CKD recently discharged from [facility] following hospitalization for PNA. Patient's and son are at bedside. They report that over the past week, patient has become increasingly SOB. There is no history of fever. reports occasional cough. Son reports that he's noticed patient to have urinary hesitancy w/ very small amount of UOP. Son reports that in ED, a meza catheter was placed w/ return of a significant amt of urine. Past History Past Medical History: heart failure, hypertension, other (multiple myeloma, sick sinus syndrome) Past Surgical History: Other (PPM implant) Social history: . denies: smoking Medications and Allergies Allergies Allergy/AdvReac Type Severity Reaction Status Date / Time No Known Allergies Allergy Unverified 12/11/17 16:00 Home Medications Medication Instructions Recorded Confirmed Last Taken Type Aspirin EC [Aspirin Enteric Coated 81 mg PO QDAY 12/11/17 12/11/17 Unknown History TAB] Bisacodyl 10 mg RC QDAY PRN 12/11/17 12/11/17 Unknown History Ti/D3/Mag11/Zinc/Vest Front Presser/Venu/Bor 1 tab PO QDAY 12/11/17 12/11/17 Unknown History [Caltrate 600+D Plus Tablet] Cholecalciferol (Vitamin D3) 2,000 unit PO QDAY 12/11/17 12/11/17 Unknown History [Vitamin D3 2,000 unit] Dexamethasone 4 mg PO QWEEK 12/11/17 12/11/17 Unknown History Docusate Sodium [Colace] 100 mg PO BID 12/11/17 12/11/17 Unknown History Enoxaparin [Lovenox] 80 mg SQ QDAY 12/11/17 12/11/17 Unknown History Levofloxacin [Levaquin TAB] 500 mg PO QDAY 12/11/17 12/11/17 Unknown History [place]-3 Fatty Acids/Fish Oil [Fish 1 each PO QDAY 12/11/17 12/11/17 Unknown History Oil] Polyethylene Glycol 3350 [Miralax 17 gm PO QDAY 12/11/17 12/11/17 Unknown History 3350] Sennosides [Senna] 8.6 mg PO QHS 12/11/17 12/11/17 Unknown History carBAMazepine [Carbamazepine] 200 mg PO Q12HR 12/11/17 12/11/17 Unknown History guaiFENesin/DEXTROMETHORPHAN 1 each PO Q12H 12/11/17 12/11/17 Unknown History [Mucinex DM ER 600-30 mg TAB] oxyCODONE /ACETAMINOPHEN [Percocet 1 tab PO Q6HR PRN 12/11/17 12/11/17 Unknown History 5/325] Active Meds: Active Medications Acetaminophen (Tylenol) 650 mg PO Q4H PRN PRN Reason: Pain MILD(1-3)/Fever >100.5/OLEA Aspirin (Halfprin Ec) 81 mg PO QDAY [facility] Last Admin: 12/12/17 11:04 Dose: 81 mg Bisacodyl (Dulcolax) 10 mg [place] QDAY PRN PRN Reason: Constipation unrelieved by MOM Carbamazepine (Tegretol) 200 mg PO Q12HR [facility] Last Admin: 12/12/17 11:03 Dose: 200 mg Carvedilol (Coreg) 3.125 mg PO BID [facility] Last Admin: 12/12/17 11:05 Dose: 3.125 mg Cholecalciferol (Vitamin D3) 2,000 unit PO QDAY [facility] Last Admin: 12/12/17 11:04 Dose: 2,000 unit Dexamethasone (Decadron) 4 mg PO QWEEK [facility] Docusate Sodium (Colace) 100 mg PO BID [facility] Last Admin: 12/12/17 11:03 Dose: 100 mg Enoxaparin Sodium (Lovenox) 80 mg SUB-Q QDAY [facility] Last Admin: 12/12/17 11:07 Dose: 80 mg Furosemide (Lasix) 40 mg IV 0600,1800 [facility] Last Admin: 12/12/17 06:19 Dose: 40 mg Magnesium Hydroxide (Milk Of Magnesia) 30 ml PO Q4H PRN PRN Reason: Constipation Ondansetron HCl (Zofran) 4 mg IV Q8H PRN PRN Reason: N/V unrelieved by Reglan Potassium Chloride (K-Dur) 20 meq PO Q12H [facility] Last Admin: 12/12/17 13:15 Dose: 20 meq Zolpidem Tartrate (Ambien) 5 mg PO QHS PRN PRN Reason: Sleep Last Admin: 12/11/17 21:47 Dose: 5 mg Review of Systems All systems: negative Exam - Vital Signs Vital signs: Vital Signs Temp Pulse Resp BP Pulse Ox 100.0 F H 104 H 22 119/80 98 12/11/17 15:56 12/11/17 15:56 12/11/17 15:56 12/11/17 15:56 12/11/17 15:56 - General Appearance General appearance: well-developed, well-nourished EENT: ATNC Respiratory: Decreased Breath Sounds Heart: regular, S1S2 Gastrointestinal: Present: normal Integumentary: no rash, warm and dry Neurologic: other (hearing loss) Musculoskeletal: Present: other (+edema) Psychiatric: cooperative Results - Lab Results 12/11/17 16:30 12/12/17 09:20 Most recent lab results Calcium 8.4 mg/dL (8.4-10.2) 12/12/17 09:20 Assessment and Plan Impression: * Acute kidney injury secondary to decompensated heart failure vs urinary retention vs myeloma kidney * Acute on chronic systolic heart failure * Urinary retention * Multiple myeloma on oral chemotherapy * Anemia Plan: * Renal function is guarded; patient w/ good UOP and lytes are stable * Diuresis per cardiology; TTE pending * Start Flomax daily * Obtain renal u/s * Abx per ID * Avoid nephrotoxins * Dose medications for renal function * Strict I/O
[2017-12-12] MEDS: FLOMAX PO SCH (17:41)
--- NOTE | 2017-12-12 17:51 | Hem/Onc Consultation ---
History of Present Illness - Reason for Consult Consult date: 12/12/17 - History of Present Illness Mr. Armstrong is an 87 yom with a history of multiple myeloma treated by Dr Foley in [place] who presents with heart failure exacerbation and acute okidney failure. 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 He was discussing further therapeutic options 09/2017 with his oncologist but did not make it to his follow up appointment due to an admission for pneumonia after which he went to subacute rehab. He returns with shortness of breath likely due to CHF. His creatinine has increased to 3.4, BNP very elevated. Right now he feels fatigued and with some mild shortness of breath. Cardiology, renal following. He has a history of progressive neuropathy. Past History Past Medical History: heart failure, hypertension, other (multiple myeloma, sick sinus syndrome) Past Surgical History: Other (PPM implant) Social history: . denies: smoking Medications and Allergies Allergies Allergy/AdvReac Type Severity Reaction Status Date / Time No Known Allergies Allergy Unverified 12/11/17 16:00 Home Medications Medication Instructions Recorded Confirmed Last Taken Type Aspirin EC [Aspirin Enteric Coated 81 mg PO QDAY 12/11/17 12/11/17 Unknown History TAB] Bisacodyl 10 mg [place] QDAY PRN 12/11/17 12/11/17 Unknown History Ti/D3/Mag11/Zinc/Sail Maker/Venu/Bor 1 tab PO QDAY 12/11/17 12/11/17 Unknown History [Caltrate 600+D Plus Tablet] Cholecalciferol (Vitamin D3) 2,000 unit PO QDAY 12/11/17 12/11/17 Unknown History [Vitamin D3 2,000 unit] Dexamethasone 4 mg PO QWEEK 12/11/17 12/11/17 Unknown History Docusate Sodium [Colace] 100 mg PO BID 12/11/17 12/11/17 Unknown History Enoxaparin [Lovenox] 80 mg SQ QDAY 12/11/17 12/11/17 Unknown History Levofloxacin [Levaquin TAB] 500 mg PO QDAY 12/11/17 12/11/17 Unknown History [place]-3 Fatty Acids/Fish Oil [Fish 1 each PO QDAY 12/11/17 12/11/17 Unknown History Oil] Polyethylene Glycol 3350 [Miralax 17 gm PO QDAY 12/11/17 12/11/17 Unknown History 3350] Sennosides [Senna] 8.6 mg PO QHS 12/11/17 12/11/17 Unknown History carBAMazepine [Carbamazepine] 200 mg PO Q12HR 12/11/17 12/11/17 Unknown History guaiFENesin/DEXTROMETHORPHAN 1 each PO Q12H 12/11/17 12/11/17 Unknown History [Mucinex DM ER 600-30 mg TAB] oxyCODONE /ACETAMINOPHEN [Percocet 1 tab PO Q6HR PRN 12/11/17 12/11/17 Unknown History 5/325] Active Meds: Active Medications Acetaminophen (Tylenol) 650 mg PO Q4H PRN PRN Reason: Pain MILD(1-3)/Fever >100.5/OLEA Aspirin (Halfprin Ec) 81 mg PO QDAY [facility] Last Admin: 12/12/17 11:04 Dose: 81 mg Bisacodyl (Dulcolax) 10 mg [place] QDAY PRN PRN Reason: Constipation unrelieved by MOM Carbamazepine (Tegretol) 200 mg PO Q12HR [facility] Last Admin: 12/12/17 11:03 Dose: 200 mg Carvedilol (Coreg) 3.125 mg PO BID [facility] Last Admin: 12/12/17 11:05 Dose: 3.125 mg Cholecalciferol (Vitamin D3) 2,000 unit PO QDAY [facility] Last Admin: 12/12/17 11:04 Dose: 2,000 unit Dexamethasone (Decadron) 4 mg PO QWEEK [facility] Docusate Sodium (Colace) 100 mg PO BID [facility] Last Admin: 12/12/17 11:03 Dose: 100 mg Enoxaparin Sodium (Lovenox) 80 mg SUB-Q QDAY [facility] Last Admin: 12/12/17 11:07 Dose: 80 mg Furosemide (Lasix) 40 mg IV 0600,1800 [facility] Last Admin: 12/12/17 17:41 Dose: 40 mg Magnesium Hydroxide (Milk Of Magnesia) 30 ml PO Q4H PRN PRN Reason: Constipation Ondansetron HCl (Zofran) 4 mg IV Q8H PRN PRN Reason: N/V unrelieved by Reglan Potassium Chloride (K-Dur) 20 meq PO Q12H [facility] Last Admin: 12/12/17 13:15 Dose: 20 meq Tamsulosin HCl (Flomax) 0.4 mg PO QDAY [facility] Last Admin: 12/12/17 17:41 Dose: 0.4 mg Zolpidem Tartrate (Ambien) 5 mg PO QHS PRN PRN Reason: Sleep Last Admin: 12/11/17 21:47 Dose: 5 mg Review of Systems Constitutional: fatigue Cardiovascular: no chest pain Respiratory: shortness of breath Gastrointestinal: no abdominal pain Integumentary: no rash Neurological: numbness Exam - Constitutional Vitals: Last Vital Signs Temp 98.2 F 12/12/17 13:13 Pulse 93 H 12/12/17 15:18 Resp 20 12/12/17 13:13 BP 110/68 12/12/17 13:13 Pulse Ox 98 12/12/17 13:13 General appearance: no acute distress - Neck Neck: supple - Respiratory Respiratory effort: Positive: normal Respiratory: bilateral: CTA - Cardiovascular Rhythm: regular Extremity abnormal: edema - Gastrointestinal General gastrointestinal: Present: soft Results - Labs lab Results: Laboratory Results - last 24 hr 12/11/17 12/11/17 12/12/17 17:40 18:00 06:15 PT 15.3 H INR 1.15 H Sodium Potassium Chloride Carbon Dioxide Anion Gap BUN Creatinine Estimated GFR BUN/Creatinine Ratio Glucose Lactic Acid 1.50 Calcium Iron 22 L TIBC 161 L % Saturation 13.66 Transferrin 131 L Vitamin B12 12/12/17 12/12/17 06:15 09:20 PT INR Sodium 140 Potassium 4.9 Chloride 98.0 Carbon Dioxide 25 Anion Gap 22 BUN 38 H Creatinine 3.4 H Estimated GFR 17 BUN/Creatinine Ratio 11 Glucose 108 H Lactic Acid Calcium 8.4 Iron TIBC % Saturation Transferrin Vitamin B12 1670 H Assessment and Plan 1. 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 Will need to obtain outpatient records and discuss with primary oncologist; prognosis is likely poor. Will order spep, siep, sflc, immunoglobulin levels. I will start Decadron. Neuropathy and heart failure concerning for amyloidosis as well.
[2017-12-12] MEDS: DECADRON IV SCH (21:20)
--- NOTE | 2017-12-12 21:33 | Ultrasound Report ---
FINAL REPORT EXAM: US RENAL BILAT HISTORY: Urinary retention TECHNIQUE: Ultrasound kidneys bilateral PRIORS: None. FINDINGS: Right kidney is 9.0 x 4.9 by 5.2 centimeters. 2 right renal cysts are noted the largest is 2.5 centimeters with slightly irregular margins minimally complex. No evidence for hydronephrosis. Cortex is 1.0 centimeters in thickness. There is increased renal echogenicity. Left kidney measures 10.6 x 6.3 x 6.5 centimeters. There are 3 left renal cysts largest seen at the lower pole measuring 3.3 centimeters. There is no evidence for hydronephrosis. There is increased renal echogenicity There is Elkins present within the urinary bladder which is decompressed IMPRESSION: Increased renal echogenicity most consistent with underlying medical renal disease Bilateral renal cysts
[2017-12-13] MEDS: DECADRON IV SCH ×4 (00:07→18:38)
[2017-12-13] MEDS: AMBIEN PO PRN ×2 (00:08→01:50)
[2017-12-13] MEDS: LASIX IV SCH ×2 (05:43→18:38)
[2017-12-13 07:03] LABS: Hematocrit 30.2 % (35.5-45.6); Hemoglobin 9.8 gm/dl (11.8-15.2); Mean Corpuscular HGB Conc 33 % (32-34); Mean Corpuscular Hemoglobin 32 pg (28-32); Mean Corpuscular Volume 98 fl (84-94); Red Blood Count 3.07 M/mm3 (3.65-5.03); Red Cell Distribution Width 13.8 % (13.2-15.2)
[2017-12-13 07:06] LABS: Platelet Count 73 K/mm3 (140-440)
[2017-12-13 07:12] LABS: Monocytes # (Auto) 0.2 K/mm3 (0.0-0.8); Monocytes % (Auto) 2.3 % (0.0-7.3)
[2017-12-13 07:31] LABS: Calcium 8.3 mg/dL (8.4-10.2)
--- NOTE | 2017-12-13 08:35 | Progress Note ---
Assessment and Plan Assessment and plan: Patient is a 87 years old male with past medical history of HTN recent admission for pneumonia, CKD ,CVA and Multiple myeloma -resident of [facility] for rehab comes in for progressive increase in his SOB. Acute on chronic diastolic Congestive heart failure. Echocardiogram with EF of 15-20% on 12/11/17 Continue on Diuresis, beta blockers Strict I&O's and daily weights Low-sodium/cardiac diet/fluid restriction Closely monitor electrolytes Cardiology evaluation Disposition patient will be discharge tomorrow to SNF with hospice care per family request. 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 Avoid nephrotoxins Nutrition Manager following Diabetes mellitus Accu-Chek before meals and at bedtime Sliding scale insulin/NovoLog ADA carbohydrate consistent diet Hypertensive urgency Continue home antihypertensive medications Closely monitor blood pressure Multiple Myeloma Follow up as outpatient with his oncologist Mild thrombocytopenia Closely monitor Complete immobility due to frailty Patient is going to SNF with hospice moderate malnutrition continue diet, business systems lead consult Histroy of CVA Stable Chronic anemia H&H stable for patient at this point; no blood transfusions needed Closely monitor H&H DVT prophylaxis Heparin History Interval history: Patient denies chest or shortness of breath; he does not want to speak much. Labs and nursing notes reviewed. 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) - Neck Neck: Present: supple - Respiratory Respiratory effort: normal Respiratory: bilateral: diminished - Cardiovascular Rhythm: regular Heart Sounds: Present: S1 & S2 - Extremities Extremity abnormal: edema (Bilateral LE), other - Abdominal General gastrointestinal: soft, non-tender - Integumentary Integumentary: Present: clear, warm, dry - Psychiatric Psychiatric: appropriate mood/affect - Neurologic Neurologic: moves all extremities - Allied Health Allied health notes reviewed: nursing Results - Labs CBC & Chem 7: 12/13/17 06:10 12/13/17 06:10 Labs: Laboratory Last Values WBC 8.4 K/mm3 (4.5-11.0) 12/13/17 06:10 RBC 3.07 M/mm3 (3.65-5.03) L 12/13/17 06:10 Hgb 9.8 gm/dl (11.8-15.2) L 12/13/17 06:10 Hct 30.2 % (35.5-45.6) L 12/13/17 06:10 MCV 98 fl (84-94) H 12/13/17 06:10 MCH 32 pg (28-32) 12/13/17 06:10 MCHC 33 % (32-34) 12/13/17 06:10 RDW 13.8 % (13.2-15.2) 12/13/17 06:10 Plt Count 73 K/mm3 (140-440) L 12/13/17 06:10 [place] % (Auto) 2.3 % (0.0-7.3) 12/13/17 06:10 Eos % (Auto) 0.0 % (0.0-4.3) 12/13/17 06:10 [place] # 0.2 K/mm3 (0.0-0.8) 12/13/17 06:10 Eos # 0.0 K/mm3 (0.0-0.4) 12/13/17 06:10 Baso # 0.0 K/mm3 (0.0-0.1) 12/13/17 06:10 Add Manual Diff Complete 12/11/17 16:30 Total Counted 100 12/11/17 16:30 Seg Neutrophils % [place] Manager 12/13/17 06:10 Seg Neuts % (Manual) 96.0 % (40.0-70.0) H 12/11/17 16:30 Band Neutrophils % 0 % 12/11/17 16:30 Lymphocytes % (Manual) 3.0 % (13.4-35.0) L 12/11/17 16:30 Reactive Lymphs % (Man) 0 % 12/11/17 16:30 Monocytes % (Manual) 1.0 % (0.0-7.3) 12/11/17 16:30 Eosinophils % (Manual) 0 % (0.0-4.3) 12/11/17 16:30 Basophils % (Manual) 0 % (0.0-1.8) 12/11/17 16:30 Metamyelocytes % 0 % 12/11/17 16:30 Myelocytes % 0 % 12/11/17 16:30 Promyelocytes % 0 % 12/11/17 16:30 Blast Cells % 0 % 12/11/17 16:30 Nucleated RBC % Not Reportable 12/11/17 16:30 Seg Neutrophils # 7.6 K/mm3 (1.8-7.7) 12/13/17 06:10 Seg Neutrophils # Man 7.9 K/mm3 (1.8-7.7) H 12/11/17 16:30 Band Neutrophils # 0.0 K/mm3 12/11/17 16:30 Lymphocytes # (Manual) 0.2 K/mm3 (1.2-5.4) L 12/11/17 16:30 Abs React Lymphs (Man) 0.0 K/mm3 12/11/17 16:30 Monocytes # (Manual) 0.1 K/mm3 (0.0-0.8) 12/11/17 16:30 Eosinophils # (Manual) 0.0 K/mm3 (0.0-0.4) 12/11/17 16:30 Basophils # (Manual) 0.0 K/mm3 (0.0-0.1) 12/11/17 16:30 Metamyelocytes # 0.0 K/mm3 12/11/17 16:30 Myelocytes # 0.0 K/mm3 12/11/17 16:30 Promyelocytes # 0.0 K/mm3 12/11/17 16:30 Blast Cells # 0.0 K/mm3 12/11/17 16:30 WBC Morphology Not Reportable 12/11/17 16:30 Hypersegmented Neuts Not Reportable 12/11/17 16:30 Hyposegmented Neuts Not Reportable 12/11/17 16:30 Hypogranular Neuts Not Reportable 12/11/17 16:30 Smudge Cells Not Reportable 12/11/17 16:30 Toxic Granulation Not Reportable 12/11/17 16:30 Toxic Vacuolation Not Reportable 12/11/17 16:30 Dohle Bodies Not Reportable 12/11/17 16:30 Pelger-Huet Anomaly Not Reportable 12/11/17 16:30 Herve Rods Not Reportable 12/11/17 16:30 Platelet Estimate Appears decreased 12/11/17 16:30 Clumped Platelets Not Reportable 12/11/17 16:30 Plt Clumps, EDTA Not Reportable 12/11/17 16:30 Large Platelets Not Reportable 12/11/17 16:30 Giant Platelets Not Reportable 12/11/17 16:30 Platelet Satelliting Not Reportable 12/11/17 16:30 Plt Morphology Comment Not Reportable 12/11/17 16:30 RBC Morphology Not Reportable 12/11/17 16:30 Dimorphic RBCs Not Reportable 12/11/17 16:30 Polychromasia Not Reportable 12/11/17 16:30 Hypochromasia Not Reportable 12/11/17 16:30 Poikilocytosis Few 12/11/17 16:30 Anisocytosis 1+ 12/11/17 16:30 Microcytosis Not Reportable 12/11/17 16:30 Macrocytosis Not Reportable 12/11/17 16:30 Spherocytes Not Reportable 12/11/17 16:30 Pappenheimer Bodies Not Reportable 12/11/17 16:30 Sickle Cells Not Reportable 12/11/17 16:30 Target Cells Not Reportable 12/11/17 16:30 Tear Drop Cells Few 12/11/17 16:30 Ovalocytes Few 12/11/17 16:30 Helmet Cells Not Reportable 12/11/17 16:30 Luciano-[place] Bodies Not Reportable 12/11/17 16:30 Broadalbin Rings Not Reportable 12/11/17 16:30 D[place] Cells Not Reportable 12/11/17 16:30 Bite Cells Not Reportable 12/11/17 16:30 Crenated Cell Not Reportable 12/11/17 16:30 Elliptocytes Not Reportable 12/11/17 16:30 Acanthocytes (Spur) Not Reportable 12/11/17 16:30 Rouleaux Not Reportable 12/11/17 16:30 Hemoglobin C Crystals Not Reportable 12/11/17 16:30 Schistocytes Not Reportable 12/11/17 16:30 Malaria parasites Not Reportable 12/11/17 16:30 Yuval Bodies Not Reportable 12/11/17 16:30 Hem Pathologist Commnt No 12/11/17 16:30 PT 15.3 Sec. (12.2-14.9) H 12/11/17 17:40 INR 1.15 (0.87-1.13) H 12/11/17 17:40 Sodium 137 mmol/L (137-145) 12/13/17 06:10 Potassium 4.9 mmol/L (3.6-5.0) 12/13/17 06:10 Chloride 95.1 mmol/L (98-107) L 12/13/17 06:10 Carbon Dioxide 25 mmol/L (22-30) 12/13/17 06:10 Anion Gap 22 mmol/L 12/13/17 06:10 BUN 40 mg/dL (9-20) H 12/13/17 06:10 Creatinine 3.5 mg/dL (0.8-1.5) H 12/13/17 06:10 Estimated GFR 17 ml/min 12/13/17 06:10 BUN/Creatinine Ratio 11 % 12/13/17 06:10 Glucose 112 mg/dL (75-100) H 12/13/17 06:10 Lactic Acid 1.50 mmol/L (0.7-2.0) 12/11/17 18:00 Calcium 8.3 mg/dL (8.4-10.2) L 12/13/17 06:10 Iron 22 ug/dL (49-181) L 12/12/17 06:15 TIBC 161 mcg/dL (250-450) L 12/12/17 06:15 % Saturation 13.66 % 12/12/17 06:15 Transferrin 131 mg/dl (180-329) L 12/12/17 06:15 Total Bilirubin 0.20 mg/dL (0.1-1.2) 12/11/17 16:30 AST 19 units/L (5-40) 12/11/17 16:30 ALT 7 units/L (7-56) 12/11/17 16:30 Alkaline Phosphatase 80 units/L (35-129) 12/11/17 16:30 NT-Pro-B Natriuret Pep > 33315 pg/mL (0-900) H 12/11/17 16:30 Total Protein 5.8 g/dL (6.3-8.2) L 12/11/17 16:30 Albumin 3.2 g/dL (3.9-5) L 12/11/17 16:30 Albumin/Globulin Ratio 1.2 % 12/11/17 16:30 Vitamin B12 1670 pg/mL (211-911) H 12/12/17 06:15 Urine Color Yellow (Yellow) 12/11/17 16:00 Urine Turbidity Clear (Clear) 12/11/17 16:00 Urine pH 5.0 (5.0-7.0) 12/11/17 16:00 Ur Specific [place] 1.010 (1.003-1.030) 12/11/17 16:00 Urine Protein <15 mg/dl mg/dL (Negative) 12/11/17 16:00 Urine Glucose (UA) Neg mg/dL (Negative) 12/11/17 16:00 Urine Ketones Neg mg/dL (Negative) 12/11/17 16:00 Urine Blood Mod (Negative) 12/11/17 16:00 Urine Nitrite Neg (Negative) 12/11/17 16:00 Urine Bilirubin Neg (Negative) 12/11/17 16:00 Urine Urobilinogen < 2.0 mg/dL (<2.0) 12/11/17 16:00 Ur Leukocyte Esterase Neg (Negative) 12/11/17 16:00 Urine WBC (Auto) 2.0 /HPF (0.0-6.0) 12/11/17 16:00 Urine RBC (Auto) 2.0 /HPF (0.0-6.0) 12/11/17 16:00 U Epithel Cells (Auto) < 1.0 /HPF (0-13.0) 12/11/17 16:00 Urine Bacteria (Auto) 1+ /HPF (Negative) 12/11/17 16:00
--- NOTE | 2017-12-13 09:11 | Hem/Onc Progress Note ---
Assessment and Plan d/w son. I discussed the prognosis. I also discussed with the patient's hide and skin processing worker at [facility] about the overall the status of the patient. Dr. Foley his hide and skin processing worker has suggested supportive care only. The son seems to be in agreement but will talk to his mother and may consider hospice if all in agreement. Subjective Date of service: 12/13/17 Interval history: no change Objective - Constitutional Vitals: Last Vital Signs Temp 97.8 F 12/13/17 04:56 Pulse 84 12/13/17 04:56 Resp 21 12/13/17 04:56 BP 113/73 12/13/17 04:56 Pulse Ox 95 12/13/17 04:56 Performance status: 4-completely disabled - Neck Neck: supple - Respiratory Respiratory effort: Positive: normal Respiratory: bilateral: diminished - Cardiovascular Rhythm: regular - Labs Lab Results: Laboratory Results - last 24 hr 12/12/17 12/13/17 12/13/17 09:20 06:10 06:10 WBC 8.4 RBC 3.07 L Hgb 9.8 L Hct 30.2 L MCV 98 H MCH 32 MCHC 33 RDW 13.8 Plt Count 73 L [place] % (Auto) 2.3 Eos % (Auto) 0.0 [place] # 0.2 Eos # 0.0 Baso # 0.0 Seg Neutrophils % English Composition Teacher Seg Neutrophils # 7.6 Sodium 140 137 Potassium 4.9 4.9 Chloride 98.0 95.1 L Carbon Dioxide 25 25 Anion Gap 22 22 BUN 38 H 40 H Creatinine 3.4 H 3.5 H Estimated GFR 17 17 BUN/Creatinine Ratio 11 11 Glucose 108 H 112 H Calcium 8.4 8.3 L
--- NOTE | 2017-12-13 10:00 | Progress Note ---
Subjective Interval history: Patient was seen today for follow-up on multiple renal related issues Events of this hospitalization noted resting in bed Vitals labs intake output medications were reviewed Social history: Reviewed Allergies: Reviewed Family history: Reviewed Physical examination HEENT: Oral mucosa moist no pallor or icterus Neck: Supple no JVD Chest: Clear to auscultation anteriorly CVS: Regular rate and rhythm S1 and S2 heard Abdomen: Soft nontender no suprapubic masses no organomegaly appreciable Extremity: Dry skin less than 1+ peripheral edema Musculoskeletal: No joint effusion noted in knees and ankle Dermatology: No petechial rashes Psychiatry: No evidence of any agitation and aggression noted Assessment and plan Renal failure severe in a patient who is 87-year-old with limited renal reserve also does have history of multiple myeloma currently being followed by hematology oncology Creatinine currently stable at 3.4 3.5 for the last 3-4 days, proteinuria less than 15 red blood cells only 2 in the urine Renal ultrasonogram: Shows echogenic kidneys and bilateral cyst hence has underlying chronic kidney disease Congestive heart failure proBNP more than 35,000, has had permanent pacemaker placement, ejection fraction 40-45% prior anterior wall TN based on EKG changes per cardiology a possibility Multiple risk factors for progression of renal failure over time History of urinary retention: Monitor post void residual volume check bladder scan Multiple myeloma currently being followed by oncology on oral therapy Anemia multifactorial at this time some resulting from myeloma as well will let hematology comment Iron deficiency anemia patient may benefit from iron infusion Thrombocytopenia possibly due to myeloma as marrow is being affected rule out other causes No indication for renal replacement therapy at this time, but will need close follow-up Overall prognosis appears to be poor in general as evident from hematology notes We'll continue to follow and make recommendation from renal standpoint Objective - Vital Signs Vital signs: Vital Signs - 12hr 12/12/17 12/12/17 12/13/17 22:02 22:12 01:03 Temperature 99.0 F Pulse Rate 92 H 89 Pulse Rate [ 92 H Apical] Respiratory 20 20 Rate Blood Pressure 89/49 96/63 O2 Sat by Pulse 93 Oximetry 12/13/17 12/13/17 04:56 07:50 Temperature 97.8 F 97.6 F Pulse Rate 84 83 Pulse Rate [ Apical] Respiratory 21 20 Rate Blood Pressure 113/73 113/70 O2 Sat by Pulse 95 93 Oximetry - Lab 12/13/17 06:10 12/13/17 06:10 Most recent lab results Calcium 8.3 mg/dL (8.4-10.2) L 12/13/17 06:10
[2017-12-13] MEDS: VITAMIN D3 PO SCH (10:36)
[2017-12-13] MEDS: HALFPRIN EC PO SCH (10:36)
[2017-12-13] MEDS: FLOMAX PO SCH (10:37)
[2017-12-13] MEDS: COLACE PO SCH ×2 (10:37→23:00)
[2017-12-13] MEDS: K-DUR PO SCH ×2 (10:37→23:00)
[2017-12-13] MEDS: LOVENOX SUB-Q SCH (10:37)
[2017-12-13] MEDS: COREG PO SCH ×2 (10:37→23:08)
--- NOTE | 2017-12-13 11:26 | Progress Note ---
Assessment and Plan Acute systolic heart failure Cardiomyopathy EF 40-45% based on last echocardiogram 11/02/16 Multiple Myeloma SSS s/p PPM Recent pneumonia Acute on CKD Recommend Medical therapy for decompensated heart failure as his blood pressure will allow. Subjective Date of service: 12/13/17 Interval history: Patient is resting in bed comfortably. Objective Vital Signs Temp Pulse Pulse Resp BP BP Pulse Ox 12/13/17 10:37 83 113/70 12/13/17 07:50 97.6 F 83 20 113/70 93 12/13/17 04:56 97.8 F 84 21 113/73 95 12/13/17 01:03 99.0 F 89 20 96/63 93 12/12/17 22:12 92 H 20 12/12/17 22:02 92 H 89/49 12/12/17 19:39 98.9 F 92 H 22 89/49 96 12/12/17 19:18 92 H 12/12/17 15:18 93 H 12/12/17 13:13 98.2 F 92 H 20 110/68 98 - Physical Examination General: No Apparent Distress Cardiac: Positive: Reg Rate and Rhythm Extremities: Present: +1 Edema - Labs and Meds CBC 12/13/17 Range/Units 06:10 WBC 8.4 (4.5-11.0) K/mm3 RBC 3.07 L (3.65-5.03) M/mm3 Hgb 9.8 L (11.8-15.2) gm/dl Hct 30.2 L (35.5-45.6) % Plt Count 73 L (140-440) K/mm3 [place] # 0.2 (0.0-0.8) K/mm3 Eos # 0.0 (0.0-0.4) K/mm3 Baso # 0.0 (0.0-0.1) K/mm3 Comprehensive Metabolic Panel 12/13/17 Range/Units 06:10 Sodium 137 (137-145) mmol/L Potassium 4.9 (3.6-5.0) mmol/L Chloride 95.1 L (98-107) mmol/L Carbon Dioxide 25 (22-30) mmol/L BUN 40 H (9-20) mg/dL Creatinine 3.5 H (0.8-1.5) mg/dL Glucose 112 H (75-100) mg/dL Calcium 8.3 L (8.4-10.2) mg/dL - Imaging and Cardiology EKG: report reviewed (Sinus tach 99/min VPC's present)
[2017-12-13 11:37] LABS: Total Cells Counted 100
[2017-12-13 11:38] LABS: Anisocytosis 1+; Band Neutrophils # (Manual) 0.3 K/mm3; Basophils % (Manual) 0 % (0.0-1.8); Eosinophils % (Manual) 0 % (0.0-4.3)
--- NOTE | 2017-12-13 23:04 | Ultrasound Report ---
FINAL REPORT PROCEDURE: US BLADDER RESIDUAL TECHNIQUE: Real-time sonography in multiple planes of the bladder was performed with image documentation. CPT 23003 HISTORY: renal failure COMPARISON: No prior studies are available for comparison. FINDINGS: Bladder: Bladder wall in the 5 millimeter range Volume Pre-void: 105 mL Volume Post-void: 47 mL IMPRESSION: Urinary residual as above. Patient unable to completely void. No obvious bladder mass
[2017-12-14] MEDS: DECADRON IV SCH ×3 (00:45→13:13)
[2017-12-14] MEDS: LASIX IV SCH (05:28)
[2017-12-14 06:52] LABS: Hematocrit 30.9 % (35.5-45.6); Hemoglobin 10.1 gm/dl (11.8-15.2); Mean Corpuscular HGB Conc 33 % (32-34); Mean Corpuscular Hemoglobin 32 pg (28-32); Mean Corpuscular Volume 97 fl (84-94); Red Blood Count 3.18 M/mm3 (3.65-5.03); Red Cell Distribution Width 13.2 % (13.2-15.2)
[2017-12-14 07:06] LABS: Calcium 8.4 mg/dL (8.4-10.2)
[2017-12-14 07:17] LABS: Platelet Count 81 K/mm3 (140-440)
[2017-12-14 08:03] LABS: Basophils % (Manual) 0 % (0.0-1.8); Eosinophils % (Manual) 0 % (0.0-4.3); Total Cells Counted 100
[2017-12-14 08:04] LABS: Anisocytosis 1+; Ovalocytes 1+; Spherocytes Few; Tear Drop Cells Rare
[2017-12-14 08:05] LABS: Platelet Estimate Appears Decreased
--- NOTE | 2017-12-14 09:15 | Progress Note ---
Subjective Interval history: Patient was seen today for follow-up on multiple renal related issues Events of this hospitalization noted, patient was being followed by Dr. Eddy family's leaning towards hospice resting in bed Vitals labs intake output medications were reviewed Social history: Reviewed Allergies: Reviewed Family history: Reviewed Physical examination HEENT: Oral mucosa moist no pallor or icterus Neck: Supple no JVD Chest: Clear to auscultation anteriorly CVS: Regular rate and rhythm S1 and S2 heard Abdomen: Soft nontender no suprapubic masses no organomegaly appreciable Extremity: Dry skin less than 1+ peripheral edema Musculoskeletal: No joint effusion noted in knees and ankle Dermatology: No petechial rashes Psychiatry: No evidence of any agitation and aggression noted Assessment and plan Renal failure: Severe Multiple myeloma hematology oncology input appreciated Ultrasonogram shows echogenic kidneys Multiple other comorbidities Family leaning towards hospice care We'll sign off the case please call if needed Objective - Vital Signs Vital signs: Vital Signs - 12hr 12/13/17 12/13/17 12/14/17 22:00 23:08 00:30 Temperature 98.2 F Pulse Rate 82 80 94 H Respiratory 20 Rate Blood Pressure 94/60 112/76 O2 Sat by Pulse 98 Oximetry 12/14/17 04:02 Temperature 97.8 F Pulse Rate 86 Respiratory 18 Rate Blood Pressure 111/64 O2 Sat by Pulse 98 Oximetry - Lab 12/14/17 05:44 12/14/17 05:44 Most recent lab results Calcium 8.4 mg/dL (8.4-10.2) 12/14/17 05:44
[2017-12-14] MEDS: VITAMIN D3 PO SCH (09:56)
[2017-12-14] MEDS: HALFPRIN EC PO SCH (09:56)
[2017-12-14] MEDS: COLACE PO SCH (09:56)
[2017-12-14] MEDS: LOVENOX SUB-Q SCH (09:57)
[2017-12-14] MEDS: FLOMAX PO SCH (09:57)
[2017-12-14 10:01] VITALS: BP 92/52
[2017-12-14] MEDS: COREG PO SCH (10:01)
[2017-12-14] MEDS: K-DUR PO SCH (10:29)
--- NOTE | 2017-12-14 11:48 | Progress Note ---
Assessment and Plan Acute systolic heart failure Cardiomyopathy EF 40-45% based on last echocardiogram 11/02/16 Echocardiogram this admission reports a severe dilated cardiomyopathy, left ventricle ejection fraction 15-20%. Multiple Myeloma SSS s/p PPM Recent pneumonia Acute on CKD -per nephrology Recommend: Medical therapy for decompensated heart failure with beta blockers and afterload reduction therapy as his blood pressure will allow. Subjective Date of service: 12/14/17 Interval history: Patient is resting in bed comfortably. No cardiac complaints. Objective Vital Signs Temp Pulse Resp BP BP Pulse Ox 12/14/17 10:01 90 92/52 12/14/17 04:02 97.8 F 86 18 111/64 98 12/14/17 00:30 98.2 F 94 H 20 112/76 98 12/13/17 23:08 80 94/60 12/13/17 22:00 82 12/13/17 20:00 97.7 F 86 22 104/62 98 12/13/17 19:20 85 99 12/13/17 13:47 97.5 F L 80 22 94/60 96 - Physical Examination General: No Apparent Distress Cardiac: Positive: Reg Rate and Rhythm Neuro: Positive: Grossly Intact Abdomen: Positive: Soft, Active Bowel Sounds Extremities: Present: +1 Edema - Labs and Meds CBC 12/14/17 Range/Units 05:44 WBC 12.9 H (4.5-11.0) K/mm3 RBC 3.18 L (3.65-5.03) M/mm3 Hgb 10.1 L (11.8-15.2) gm/dl Hct 30.9 L (35.5-45.6) % Plt Count 81 L (140-440) K/mm3 Comprehensive Metabolic Panel 12/14/17 Range/Units 05:44 Sodium 138 (137-145) mmol/L Potassium 4.6 (3.6-5.0) mmol/L Chloride 94.7 L (98-107) mmol/L Carbon Dioxide 29 (22-30) mmol/L BUN 42 H (9-20) mg/dL Creatinine 3.3 H (0.8-1.5) mg/dL Glucose 105 H (75-100) mg/dL Calcium 8.4 (8.4-10.2) mg/dL - Imaging and Cardiology EKG: report reviewed (Sinus tach 99/min VPC's present)
--- NOTE | 2017-12-14 13:10 | Progress Note ---
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 avoid nephrotoxins, general duty nurse consulted on lasix, dc HUAN for now (creat now 3.5, was 2.3 on previous admission) MM outpatient fup with his oncologist anemia and thrombocytopenia are mild and stable Sp PM HR stable HTN BP meds, propranolol and doxazosin were dc during last admission due to hypotension Complete immobility due to frailty PT, home with services vs SNF, fup PT assessment moderate malnutrition continue diet, otr flatbed company truck driver consult hx of CVA stable History Interval history: c/o chronic weakness MOBLEY and orthopnea and LE edema are improved -no fever no chills -no OLEA, no neck stiffness -no vomiting Hospitalist Physical - Physical exam Narrative exam: General.: Appears chronically ill, no distress, nontoxic, HEENT: Moist mucous membranes, extraocular muscles intact, no lymphadenopathy Right cirrhosis, which is chronic Neck: supple Cardiac: S1-S2 heard Lungs: Bibasilar crackles Abdomen: soft , nontender, nondistended, bowel sounds positive Extremities: 1+ bipedal edema Skin: no rash or lesions Neurologic: no gross focal deficits, generalized weakness Psych: appropriate behavior, appropriate mood, corporative, judgment intact - Constitutional Vitals: Temp Pulse Resp BP Pulse Ox 97.8 F 90 18 92/52 98 12/14/17 04:02 12/14/17 10:01 12/14/17 10:00 12/14/17 10:01 12/14/17 04:02 General appearance: Present: mild distress, well-nourished Results - Labs CBC & Chem 7: 12/14/17 05:44 12/14/17 05:44 Labs: Laboratory Last Values WBC 12.9 K/mm3 (4.5-11.0) H 12/14/17 05:44 RBC 3.18 M/mm3 (3.65-5.03) L 12/14/17 05:44 Hgb 10.1 gm/dl (11.8-15.2) L 12/14/17 05:44 Hct 30.9 % (35.5-45.6) L 12/14/17 05:44 MCV 97 fl (84-94) H 12/14/17 05:44 MCH 32 pg (28-32) 12/14/17 05:44 MCHC 33 % (32-34) 12/14/17 05:44 RDW 13.2 % (13.2-15.2) 12/14/17 05:44 Plt Count 81 K/mm3 (140-440) L 12/14/17 05:44 [place] % (Auto) 2.3 % (0.0-7.3) 12/13/17 06:10 Eos % (Auto) 0.0 % (0.0-4.3) 12/13/17 06:10 [place] # 0.2 K/mm3 (0.0-0.8) 12/13/17 06:10 Eos # 0.0 K/mm3 (0.0-0.4) 12/13/17 06:10 Baso # 0.0 K/mm3 (0.0-0.1) 12/13/17 06:10 Add Manual Diff Complete 12/14/17 05:44 Total Counted 100 12/14/17 05:44 Seg Neutrophils % Assembler Brazer 12/14/17 05:44 Seg Neuts % (Manual) 96.0 % (40.0-70.0) H 12/14/17 05:44 Band Neutrophils % 0 % 12/14/17 05:44 Lymphocytes % (Manual) 0 % (13.4-35.0) L 12/14/17 05:44 Reactive Lymphs % (Man) 0 % 12/14/17 05:44 Monocytes % (Manual) 4.0 % (0.0-7.3) 12/14/17 05:44 Eosinophils % (Manual) 0 % (0.0-4.3) 12/14/17 05:44 Basophils % (Manual) 0 % (0.0-1.8) 12/14/17 05:44 Metamyelocytes % 0 % 12/14/17 05:44 Myelocytes % 0 % 12/14/17 05:44 Promyelocytes % 0 % 12/14/17 05:44 Blast Cells % 0 % 12/14/17 05:44 Nucleated RBC % Not Reportable 12/14/17 05:44 Seg Neutrophils # 7.6 K/mm3 (1.8-7.7) 12/13/17 06:10 Seg Neutrophils # Man 12.4 K/mm3 (1.8-7.7) H 12/14/17 05:44 Band Neutrophils # 0.0 K/mm3 12/14/17 05:44 Lymphocytes # (Manual) 0.0 K/mm3 (1.2-5.4) L 12/14/17 05:44 Abs React Lymphs (Man) 0.0 K/mm3 12/14/17 05:44 Monocytes # (Manual) 0.5 K/mm3 (0.0-0.8) 12/14/17 05:44 Eosinophils # (Manual) 0.0 K/mm3 (0.0-0.4) 12/14/17 05:44 Basophils # (Manual) 0.0 K/mm3 (0.0-0.1) 12/14/17 05:44 Metamyelocytes # 0.0 K/mm3 12/14/17 05:44 Myelocytes # 0.0 K/mm3 12/14/17 05:44 Promyelocytes # 0.0 K/mm3 12/14/17 05:44 Blast Cells # 0.0 K/mm3 12/14/17 05:44 WBC Morphology Not Reportable 12/14/17 05:44 Hypersegmented Neuts Not Reportable 12/14/17 05:44 Hyposegmented Neuts Not Reportable 12/14/17 05:44 Hypogranular Neuts Not Reportable 12/14/17 05:44 Smudge Cells Not Reportable 12/14/17 05:44 Toxic Granulation Not Reportable 12/14/17 05:44 Toxic Vacuolation Not Reportable 12/14/17 05:44 Dohle Bodies Not Reportable 12/14/17 05:44 Pelger-Huet Anomaly Not Reportable 12/14/17 05:44 Herve Rods Not Reportable 12/14/17 05:44 Platelet Estimate Appears decreased 12/14/17 05:44 Clumped Platelets Not Reportable 12/14/17 05:44 Plt Clumps, EDTA Not Reportable 12/14/17 05:44 Large Platelets Not Reportable 12/14/17 05:44 Giant Platelets Not Reportable 12/14/17 05:44 Platelet Satelliting Not Reportable 12/14/17 05:44 Plt Morphology Comment Not Reportable 12/14/17 05:44 RBC Morphology Not Reportable 12/14/17 05:44 Dimorphic RBCs Not Reportable 12/14/17 05:44 Polychromasia 1+ 12/14/17 05:44 Hypochromasia Not Reportable 12/14/17 05:44 Poikilocytosis Not Reportable 12/14/17 05:44 Anisocytosis 1+ 12/14/17 05:44 Microcytosis Not Reportable 12/14/17 05:44 Macrocytosis Not Reportable 12/14/17 05:44 Spherocytes Few 12/14/17 05:44 Pappenheimer Bodies Not Reportable 12/14/17 05:44 Sickle Cells Not Reportable 12/14/17 05:44 Target Cells Not Reportable 12/14/17 05:44 Tear Drop Cells Rare 12/14/17 05:44 Ovalocytes 1+ 12/14/17 05:44 Helmet Cells Not Reportable 12/14/17 05:44 Luciano-Jaars Bodies Not Reportable 12/14/17 05:44 [place] Rings Not Reportable 12/14/17 05:44 Rudi Cells Not Reportable 12/14/17 05:44 Bite Cells Not Reportable 12/14/17 05:44 Crenated Cell Not Reportable 12/14/17 05:44 Elliptocytes Few 12/14/17 05:44 Acanthocytes (Spur) Not Reportable 12/14/17 05:44 Rouleaux Not Reportable 12/14/17 05:44 Hemoglobin C Crystals Not Reportable 12/14/17 05:44 Schistocytes Not Reportable 12/14/17 05:44 Malaria parasites Not Reportable 12/14/17 05:44 Yuval Bodies Not Reportable 12/14/17 05:44 Hem Pathologist Commnt No 12/14/17 05:44 PT 15.3 Sec. (12.2-14.9) H 12/11/17 17:40 INR 1.15 (0.87-1.13) H 12/11/17 17:40 Sodium 138 mmol/L (137-145) 12/14/17 05:44 Potassium 4.6 mmol/L (3.6-5.0) 12/14/17 05:44 Chloride 94.7 mmol/L (98-107) L 12/14/17 05:44 Carbon Dioxide 29 mmol/L (22-30) 12/14/17 05:44 Anion Gap 19 mmol/L 12/14/17 05:44 BUN 42 mg/dL (9-20) H 12/14/17 05:44 Creatinine 3.3 mg/dL (0.8-1.5) H 12/14/17 05:44 Estimated GFR 18 ml/min 12/14/17 05:44 BUN/Creatinine Ratio 13 % 12/14/17 05:44 Glucose 105 mg/dL (75-100) H 12/14/17 05:44 Lactic Acid 1.50 mmol/L (0.7-2.0) 12/11/17 18:00 Calcium 8.4 mg/dL (8.4-10.2) 12/14/17 05:44 Iron 22 ug/dL (49-181) L 12/12/17 06:15 TIBC 161 mcg/dL (250-450) L 12/12/17 06:15 % Saturation 13.66 % 12/12/17 06:15 Transferrin 131 mg/dl (180-329) L 12/12/17 06:15 Total Bilirubin 0.20 mg/dL (0.1-1.2) 12/11/17 16:30 AST 19 units/L (5-40) 12/11/17 16:30 ALT 7 units/L (7-56) 12/11/17 16:30 Alkaline Phosphatase 80 units/L (35-129) 12/11/17 16:30 NT-Pro-B Natriuret Pep > 50524 pg/mL (0-900) H 12/11/17 16:30 Total Protein 5.8 g/dL (6.3-8.2) L 12/11/17 16:30 Albumin 3.2 g/dL (3.9-5) L 12/11/17 16:30 Albumin/Globulin Ratio 1.2 % 12/11/17 16:30 Vitamin B12 1670 pg/mL (211-911) H 12/12/17 06:15 Urine Color Yellow (Yellow) 12/11/17 16:00 Urine Turbidity Clear (Clear) 12/11/17 16:00 Urine pH 5.0 (5.0-7.0) 12/11/17 16:00 Ur Specific [place] 1.010 (1.003-1.030) 12/11/17 16:00 Urine Protein <15 mg/dl mg/dL (Negative) 12/11/17 16:00 Urine Glucose (UA) Neg mg/dL (Negative) 12/11/17 16:00 Urine Ketones Neg mg/dL (Negative) 12/11/17 16:00 Urine Blood Mod (Negative) 12/11/17 16:00 Urine Nitrite Neg (Negative) 12/11/17 16:00 Urine Bilirubin Neg (Negative) 12/11/17 16:00 Urine Urobilinogen < 2.0 mg/dL (<2.0) 12/11/17 16:00 Ur Leukocyte Esterase Neg (Negative) 12/11/17 16:00 Urine WBC (Auto) 2.0 /HPF (0.0-6.0) 12/11/17 16:00 Urine RBC (Auto) 2.0 /HPF (0.0-6.0) 12/11/17 16:00 U Epithel Cells (Auto) < 1.0 /HPF (0-13.0) 12/11/17 16:00 Urine Bacteria (Auto) 1+ /HPF (Negative) 12/11/17 16:00
--- NOTE | 2017-12-14 13:13 | Discharge Summary ---
Providers - Providers Date of Admission: 12/11/17 19:45 Attending physician: TATIANA HARTLEY MD 12/11/17 21:06 Consult to Physician [CONS] Routine Consulting Provider: TESSA WELLS Reason For Exam: chf Place consult to:: Dr. Wells Notified:: Aida RN Phone number called:: Was contact made?: Yes If yes, spoke with:: Kendal-answering service Time called:: 09:12 12/12/17 05:30 Consult to Physician [CONS] Routine Consulting Provider: HARRISON JARVIS Reason For Exam: ckd Place consult to:: Dr. Jarvis Notified:: Aida RN Phone number called:: Was contact made?: Yes If yes, spoke with:: Christiana-answering service Time called:: 09:17 12/12/17 05:32 Consult to Dietitian/Nutrition [CONS] Routine Physician Instructions: diet supplements Reason For Exam: malnutrition Reason for Consult: Pt needs oral supplement 12/12/17 05:33 Consult to Physician [CONS] Routine Consulting Provider: MATHEW TAYLOR Reason For Exam: multiople myeloma Place consult to:: Dr. Taylor Notified:: Aida RN Phone number called:: Was contact made?: Yes If yes, spoke with:: Lynne-answering service Time called:: 09:14 12/12/17 09:11 Physical Therapy Evaluation and Treat [CONS] Routine Comment: Reason For Exam: debility 12/12/17 09:14 Consult to Dietitian/Nutrition [CONS] Routine Physician Instructions: Reason For Exam: Reason for Consult: Malnutrition 12/12/17 15:48 Consult to Case Management [CONS] Routine Services Needed at Discharge: Other Notified:: Case management Additional Physician Instructions: Family requests options re: rehab vs home health resources after discharge Primary care physician: BRYANT MOMIN Hospitalization Condition: Stable Hospital course: 87M with MM on chemo, pw sob, LE edema. he was found to be in CHF exacerbation with with fluid overnight. He received cardiology consult who noted that he had a worsening of ejection fraction. He received IV diuresis after which she improved. He did have a worsening of his renal function, but his kidney function stayed stable. He was also seen by oncology who communicated with outpatient oncologist. His outpatient oncologist has recommended no further chemotherapy and has recommended palliative care only at this point. Therefore arrangements were made for him to have home hospice at home. And he was subsequently discharged to home hospice care. 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 Multiple myeloma, recurrent Sp PM HTN Complete immobility due to frailty moderate malnutrition hx of CVA Disposition: DC-50 TO HOSPICE (HOME) Time spent for discharge: 33 minutes Core Measure Documentation - Palliative Care Palliative Care/ Comfort Measures: Hospice Care - Core Measures Any of the following diagnoses?: heart failure - Heart Failure Discharge Requirements HUAN/ARB for LVSD if EF <40%: No Reason for no HUAN/ARB: Hypotension Beta patricia at discharge: Yes Exam - Physical Exam Narrative exam: General.: Appears chronically ill, no distress, nontoxic, HEENT: Moist mucous membranes, extraocular muscles intact, no lymphadenopathy Right cirrhosis, which is chronic Neck: supple Cardiac: S1-S2 heard Lungs: Bibasilar crackles Abdomen: soft , nontender, nondistended, bowel sounds positive Extremities: 1+ bipedal edema Skin: no rash or lesions Neurologic: no gross focal deficits, generalized weakness Psych: appropriate behavior, appropriate mood, corporative, judgment intact - Constitutional Vitals: Temp Pulse Resp BP Pulse Ox 97.8 F 90 18 92/52 98 12/14/17 04:02 12/14/17 10:01 12/14/17 10:00 12/14/17 10:01 12/14/17 04:02 Plan Follow up with: PRIMARY CARE, [Referring] - 3-5 Days Prescriptions: Sennosides [Senna] 8.6 mg PO QHS PRN #30 tablet PRN Reason: Constipation Zolpidem [Ambien] 5 mg PO QHS PRN #30 tablet PRN Reason: Sleep Aspirin EC [Aspirin Enteric Coated TAB] 81 mg PO QDAY #30 tablet Bisacodyl 10 mg RC 2XW PRN #10 supp.rect PRN Reason: Constipation Ti/D3/Mag11/Zinc/Microbiology Technologist/Venu/Bor [Caltrate 600+D Plus Tablet] 1 tab PO QDAY #30 tablet carBAMazepine [Carbamazepine] 200 mg PO Q12HR #60 tablet Cholecalciferol (Vitamin D3) [Vitamin D3 2,000 unit] 2,000 unit PO QDAY #30 capsule Dexamethasone [Decadron] 4 mg PO DAILY 14 Days tablet Docusate Sodium [Colace CAP] 100 mg PO BID #60 capsule Enoxaparin [Lovenox] 80 mg SQ QDAY #30 syringe Furosemide [Lasix TAB] 40 mg PO QDAY #30 tablet Metoprolol Succinate [Toprol Xl] 50 mg PO DAILY #30 tab.er.24h [place]-3 Fatty Acids/Fish Oil [Fish Oil] 1 each PO QDAY #30 capsule oxyCODONE /ACETAMINOPHEN [Percocet 5/325 mg] 1 tab PO Q6HR PRN #60 tablet PRN Reason: Pain Polyethylene Glycol 3350 [Clearlax] 17 gm PO DAILY PRN #30 powd.pack PRN Reason: Constipation Potassium Chloride [K-Dur] 20 meq PO DAILY #30 tablet Tamsulosin [Flomax] 0.4 mg PO QDAY #30 capsule
--- NOTE | 2017-12-14 22:34 | Hem/Onc Progress Note ---
Assessment and Plan - Patient Problems (1) Multiple myeloma in remission Status: Chronic Plan to address problem: Family prefers hospice. All agree. Subjective Date of service: 12/14/17 Interval history: Patient is bed bound. Met with and children. Objective - Constitutional Vitals: Last Vital Signs Temp 97.8 F 12/14/17 04:02 Pulse 90 12/14/17 10:01 Resp 18 12/14/17 10:00 BP 92/52 12/14/17 10:01 Pulse Ox 98 12/14/17 04:02 Performance status: 4-completely disabled - Labs Lab Results: Laboratory Results - last 24 hr 12/12/17 12/14/17 12/14/17 06:15 05:44 05:44 WBC 12.9 H RBC 3.18 L Hgb 10.1 L Hct 30.9 L MCV 97 H MCH 32 MCHC 33 RDW 13.2 Plt Count 81 L Add Manual Diff Complete Total Counted 100 Seg Neutrophils % Health Care Sanitary Technician Seg Neuts % (Manual) 96.0 H Band Neutrophils % 0 Lymphocytes % (Manual) 0 L Reactive Lymphs % (Man) 0 Monocytes % (Manual) 4.0 Eosinophils % (Manual) 0 Basophils % (Manual) 0 Metamyelocytes % 0 Myelocytes % 0 Promyelocytes % 0 Blast Cells % 0 Nucleated RBC % Not Reportable Seg Neutrophils # Man 12.4 H Band Neutrophils # 0.0 Lymphocytes # (Manual) 0.0 L Abs React Lymphs (Man) 0.0 Monocytes # (Manual) 0.5 Eosinophils # (Manual) 0.0 Basophils # (Manual) 0.0 Metamyelocytes # 0.0 Myelocytes # 0.0 Promyelocytes # 0.0 Blast Cells # 0.0 WBC Morphology Not Reportable Hypersegmented Neuts Not Reportable Hyposegmented Neuts Not Reportable Hypogranular Neuts Not Reportable Smudge Cells Not Reportable Toxic Granulation Not Reportable Toxic Vacuolation Not Reportable Dohle Bodies Not Reportable Pelger-Huet Anomaly Not Reportable Herve Rods Not Reportable Platelet Estimate Appears decreased Clumped Platelets Not Reportable Plt Clumps, EDTA Not Reportable Large Platelets Not Reportable Giant Platelets Not Reportable Platelet Satelliting Not Reportable Plt Morphology Comment Not Reportable RBC Morphology Not Reportable Dimorphic RBCs Not Reportable Polychromasia 1+ Hypochromasia Not Reportable Poikilocytosis Not Reportable Anisocytosis 1+ Microcytosis Not Reportable Macrocytosis Not Reportable Spherocytes Few Pappenheimer Bodies Not Reportable Sickle Cells Not Reportable Target Cells Not Reportable Tear Drop Cells Rare Ovalocytes 1+ Helmet Cells Not Reportable [place] Bodies Not Reportable [place] Rings Not Reportable [place] Cells Not Reportable Bite Cells Not Reportable Crenated Cell Not Reportable Elliptocytes Few Acanthocytes (Spur) Not Reportable Rouleaux Not Reportable Hemoglobin C Crystals Not Reportable Schistocytes Not Reportable Malaria parasites Not Reportable Yuval Bodies Not Reportable Hem Pathologist Commnt No Sodium 138 Potassium 4.6 Chloride 94.7 L Carbon Dioxide 29 Anion Gap 19 BUN 42 H Creatinine 3.3 H Estimated GFR 18 BUN/Creatinine Ratio 13 Glucose 105 H Calcium 8.4 RBC Folic Acid 931
[2017-12-16 04:29] LABS: Abnormal Protein Band 1 0.2 g/dL; Albumin 3.1 g/dL (3.8-4.8); Gamma Globulin 0.6 g/dL (0.8-1.7)
[2017-12-18] MEDS ORDERED: DECADRON PO SCH (10:00)
== END 2017-12-14 16:22 | disposition hospice, home (50) | DRG 682 ==
LOC: ED 15:08 → 4A 19:45
PROVIDERS: ADMIT Internal Medicine; ATTEND Internal Medicine
DX: N17.0 Acute kidney failure with tubular necrosis (principal); R53.2 Functional quadriplegia; I50.23 Acute on chronic systolic (congestive) heart failure; I13.0 Hypertensive heart and chronic kidney disease with heart failure and stage 1 through stage 4 chronic kidney disease, or unspecified chronic kidney disease; C90.01 Multiple myeloma in remission; E44.0 Moderate protein-calorie malnutrition; C90.00 Multiple myeloma not having achieved remission; E46 Unspecified protein-calorie malnutrition; I42.9 Cardiomyopathy, unspecified; N18.3 Chronic kidney disease, stage 3 (moderate); D50.9 Iron deficiency anemia, unspecified; E56.9 Vitamin deficiency, unspecified; D69.6 Thrombocytopenia, unspecified; D63.8 Anemia in other chronic diseases classified elsewhere; Z86.73 Personal history of transient ischemic attack (TIA), and cerebral infarction without residual deficits; Z95.0 Presence of cardiac pacemaker; Z79.899 Other long term (current) drug therapy; Z79.82 Long term (current) use of aspirin; Z79.2 Long term (current) use of antibiotics; Z68.26 Body mass index [BMI] 26.0-26.9, adult
CPT/HCPCS: 36415; 71045; 76770; 76857; 80048; 80053; 81001; 82140; 82232; 82607; 82747; 83550; 83880; 84165; 84166; 85007; 85025; 85610; 85810; 86334; 87040; 87086; 93005; 93010; 93306; 96374; J1100; J1650; J1940